=== PATIENT | male | born 1980 | race Two or more races ===

== ENCOUNTER 2019-08-28 12:56 | Emergency (ER) | payer MEDICAID, OTHER ==
[~2019-08-28] VITALS: Ht 172.7 cm; Wt 113.4 kg
[2019-08-28 13:20] VITALS: BP 135/103
== END 2019-08-28 15:14 | disposition home or self-care (01) ==
LOC: ER 12:56
DX: S93.602A Unspecified sprain of left foot, initial encounter (principal); S83.92XA Sprain of unspecified site of left knee, initial encounter; Z88.8 Allergy status to other drugs, medicaments and biological substances; V29.9XXA Motorcycle rider (driver) (passenger) injured in unspecified traffic accident, initial encounter; Y93.I9 Activity, other involving external motion; Y92.410 Unspecified street and highway as the place of occurrence of the external cause; Y99.8 Other external cause status
CPT/HCPCS: 73562; 73610; 73630

== ENCOUNTER 2021-02-17 21:52 | Emergency (ER) | payer MEDICAID ==
[~2021-02-17] VITALS: Ht 172.7 cm; Wt 108.9 kg
[2021-02-17 21:55] VITALS: BP 113/77
[2021-02-17 22:42] LABS: Basophils # (auto) 0 10 ^3/uL (0-0.2); Basophils % (auto) 0.5 % (0.0-2.0); Eosinophils # (auto) 0 10 ^3/uL (0-0.8); Eosinophils % (auto) 0.2 % (0.0-7.0); Hematocrit 45.6 % (41.0-53.0); Hemoglobin 15.4 g/dL (13.5-17.5); Lymphocytes # (auto) 1.5 10 ^3/uL (0.4-5.4); Lymphocytes % (auto) 22.4 % (10.0-50.0); Mean Corpuscular Hemoglobin 30.2 pg (28.0-32.0); Mean Corpuscular Hgb Conc. 33.8 g/dL (32.0-36.0); Mean Corpuscular Volume 89.3 fL (80.0-100.0); Monocytes # (auto) 0.7 10 ^3/uL (0-1.3); Monocytes % (auto) 10.1 % (0.0-12.0); Neutrophils # (auto) 4.6 10 ^3/uL (1.6-8.6); Neutrophils % (auto) 66.8 % (37.0-80.0); Nucleated Red Blood Cells % 0.1 %; Red Cell Distribution Width 13.2 % (11.8-14.3); White Blood Cell 6.9 10^3/uL (4.4-10.8)
[2021-02-17 23:02] LABS: Albumin 3.6 g/dL (3.4-5.0); Calcium 8.9 mg/dL (8.5-10.1); Potassium 3.8 mmol/L (3.5-5.1)
[2021-02-17 23:07] LABS: BUN/Creatinine Ratio 12.7; Bilirubin, Total 0.5 mg/dL (0.2-1.0); Total Protein 8.5 g/dL (6.4-8.2)
== END 2021-02-18 02:11 | disposition left against medical advice (07) ==
LOC: ER 21:52
DX: R19.7 Diarrhea, unspecified (principal); Z20.822 Contact with and (suspected) exposure to COVID-19; Z53.21 Procedure and treatment not carried out due to patient leaving prior to being seen by health care provider
CPT/HCPCS: 36415; 80053; 85025; 87426

== ENCOUNTER 2021-10-13 00:25 | Emergency (ER) | payer MEDICAID ==
[2021-10-13] MEDS ORDERED: KETOROLAC TROMETH 60MG/2ML VIAL IM ONE (03:30)
[2021-10-13] MEDS ORDERED: IBUP800T27 PO (03:47)
[2021-10-13 04:27] VITALS: BP 184/104
== END 2021-10-13 05:36 | disposition home or self-care (01) ==
LOC: ER 00:25
DX: K02.9 Dental caries, unspecified (principal); E11.9 Type 2 diabetes mellitus without complications; Z79.1 Long term (current) use of non-steroidal anti-inflammatories (NSAID); Z88.8 Allergy status to other drugs, medicaments and biological substances
CPT/HCPCS: 96372; 99283; J1885

== ENCOUNTER 2024-07-22 04:42 | Emergency (ER) | payer OTHER, MEDICAID ==
[~2024-07-22] VITALS: Ht 172.7 cm; Wt 111.6 kg
[~2024-07-22 04:42] MED LIST: IBUP-1456 PO
--- NOTE | 2024-07-22 05:16 | ED.PDOC ---
History of Present Illness HPI Comments 44-year-old male complains of right flank pain for the last 1 week. Patient states that he has been having a hard time sleeping in the pain was with little worse tonight so he came in to be checked out. Chief Complaint: Flank Pain Time Seen by MD: 05:03 Primary Care Provider: Dr. Jones Allergies: Coded Allergies: NSAIDs (Verified Allergy, Unknown, 02/17/21) Home Meds Active Scripts Ibuprofen (Ibuprofen) 800 Mg Tab, 1 TAB PO Q6HPRN PRN, #30 TAB 0 Refills Prov:LORETTA KINGRA Karina MOBLEY 10/13/21 Information Source: Patient Mode of Arrival: Ambulatory Severity: Moderate Timing: Days Duration: Since onset Past Medical History PAST MEDICAL HISTORY: DM Surgical History: Denies all surgeries Family History Family History: Reviewed,noncontributory to illness Social History Smoker: Non-Smoker Alcohol: Denies ETOH Use Drugs: Denies Drug Use Lives In: Home Constitutional: reports: malaise Gastrointestinal: reports: nausea Genitourinary: reports: dysuria, flank pain All Other Systems: Reviewed and Negative Physical Exam General Appearance: Moderate Distress, Obese HEENT: Normal ENT Inspection, Pharynx Normal, TMs Normal Neck: Full Range of Motion, Non-Tender, Normal, Normal Inspection Respiratory: Chest Non-Tender, Lungs Clear, No Accessory Muscle Use, No Respiratory Distress, Normal Breath Sounds Cardiovascular: No Edema, No JVD, No Murmur, No Gallop, Normal Peripheral Pulses, Regular Rate/Rhythm Breast Exam: Deferred Gastrointestinal: No Organomegaly, Non Tender, No Pulsatile Mass, Normal Bowel Sounds, Soft Genitalia: Deferred Pelvic: Deferred Rectal: Deferred Extremities: No calf tenderness, Normal capillary refill, Normal inspection, Normal range of motion, Non-tender, No pedal edema Musculoskeletal : Apperance: Normal Neurologic: Alert, encephalographer II-XII nml as Tested, No Motor Deficits, Normal Affect, Normal Mood, No Sensory Deficits Cerebellar Function: Normal Reflexes: Normal Skin: Dry, Normal Color, Warm Lymphatic: No Adenopathy Was a procedure done? Was a procedure done?: No Differential Dx Considerations may include: Differential diagnosis includes but is not limited to: ureteral colic / stone, Aortic aneurysm or dissection, pyelonephritis, acute renal failure, musculoskeletal etiology, constipation and others X-Ray, Labs, Meds, VS Vital Signs Date Time Temp Pulse Resp B/P (MAP) Pulse Ox O2 Delivery O2 Flow Rate FiO2 07/22/24 07:43 88 17 95 Room Air 07/22/24 07:43 98.7 88 16 148/102 (117) 95 98.7 07/22/24 05:20 88 16 96 Room Air* 0 21 07/22/24 05:20 98.8 16 88 159/99 (119) 96 98.8 07/22/24 04:54 98.8 88 16 159/99 (119) 96 98.8 Lab Test 07/22/24 05:16 07/22/24 04:54 Range/Units White Blood Count 6.0 4.4-10.8 10^3/uL Red Blood Count 4.17 L 4.5-5.90 10^6/uL Hemoglobin 12.7 L 13.5-17.5 g/dL Hematocrit 37.9 L 41.0-53.0 % Mean Corpuscular Volume 90.7 80.0-100.0 fL Mean Corpuscular Hemoglobin 30.5 28.0-32.0 pg Mean Corpuscular Hemoglobin Concent 33.6 32.0-36.0 g/dL Red Cell Distribution Width 13.1 11.8-14.3 % Platelet Count 180 140-450 10^3/uL Mean Platelet Volume 8.5 6.9-10.8 fL Neutrophils (%) (Auto) 46.6 37.0-80.0 % Lymphocytes (%) (Auto) 42.2 10.0-50.0 % Monocytes (%) (Auto) 6.9 0.0-12.0 % Eosinophils (%) (Auto) 3.6 0.0-7.0 % Basophils (%) (Auto) 0.7 0.0-2.0 % Neutrophils # (Auto) 2.8 1.6-8.6 10 ^3/uL Lymphocytes # (Auto) 2.5 0.4-5.4 10 ^3/uL Monocytes # (Auto) 0.4 0-1.3 10 ^3/uL Eosinophils # (Auto) 0.2 0-0.8 10 ^3/uL Basophils # (Auto) 0 0-0.2 10 ^3/uL Nucleated Red Blood Cells 0.3 % Sodium Level 139 136-145 mmol/L Potassium Level 3.0 L 3.5-5.1 mmol/L Chloride Level 110 H 98-107 mmol/L Carbon Dioxide Level 20 20-31 mmol/L Anion Gap 9 5-15 Blood Urea Nitrogen 8 L 9-23 mg/dL Creatinine 0.73 0.700-1.30 mg/dL Glomerular Filtration Rate Calc 116 >90 mL/min BUN/Creatinine Ratio 11.0 10.0-20.0 Serum Glucose 244 H 74-106 mg/dL Calcium Level 7.3 L 8.7-10.4 mg/dL Total Bilirubin 0.5 0.2-1.0 mg/dL Aspartate Amino Transferase (AST) 15 13-40 U/L Alanine Aminotransferase (ALT) 24 7-40 U/L Alkaline Phosphatase 35 L 46-116 U/L Total Protein 5.8 5.7-8.2 g/dL Albumin 3.3 3.2-4.8 g/dL Lipase 34 12-53 U/L Urine Color Light-yellow Yellow Urine Clarity Clear Clear Urine pH 6.5 5.0-9.0 Urine Specific [place] 1.033 1.001-1.035 Urine Protein Negative Negative Urine Ketones Negative Negative Urine Blood Negative Negative /uL Urine Nitrite Negative Negative Urine Bilirubin Negative Negative Urine Urobilinogen Normal Negative mg/dL Urine Leukocyte Esterase Negative Negative /uL Urine RBC None seen 0 - 3 /hpf Urine Microscopic WBC < 1 0-3 /HPF Urine Squamous Epithelial Cells None seen <5 /hpf Urine Bacteria None seen None Seen /hpf Urine Glucose 4+ H Normal mg/dL Current Medications Medications (Trade) Dose Ordered Sig/Ajit Route Start Time Stop Time Status Last Admin Potassium Chloride (Klor-Con Tablet) 20 meq ONCE ONCE PO 07/22/24 06:30 07/22/24 06:31 DC 07/22/24 06:[address] [address] Ph: [phone] DIAGNOSTIC IMAGING Diagnostic Imaging Report : [id number] Signed PATIENT: MARY LYNN ACCT: [id number] UNIT: [id number] : 1980 LOC: ER ROOM / BED: / AGE / SEX: 44 / M ADM STATUS: REG ER SERVICE 2462 ORDERING PHYSICIAN: ZOË FINCH MD PROCEDURE(s): ABPL - CT AB PEL WO CON-NO ORAL OR IV REASON: right flank pain ORDER NUMBER(s): [id number], ACCESSION NUMBER(s): [id number] EXAM: CT Abdomen and Pelvis Without Intravenous Contrast CLINICAL INDICATION: right flank pain TECHNIQUE: Axial computed tomography images of the abdomen and pelvis without intravenous contrast. This CT exam was performed using one or more of the following dose reduction techniques: automated exposure control, adjustment of the mA and/or kV according to patient size, and/or use of iterative reconstruction technique. CONTRAST: COMPARISON: None FINDINGS: LUNG BASES: Unremarkable. No mass. No consolidation. ABDOMEN: LIVER: Hepatomegaly with fatty infiltration. GALLBLADDER AND BILE DUCTS: Unremarkable. No calcified stones. No ductal dilation. PANCREAS: Unremarkable. No ductal dilation. SPLEEN: Unremarkable. No splenomegaly. ADRENALS: Unremarkable. No mass. KIDNEYS AND URETERS: Unremarkable. No stones within either kidney. No hydronephrosis. STOMACH AND BOWEL: Fecal retention in the colon consistent with constipation. No obstruction. No mucosal thickening. PELVIS: APPENDIX: No findings to suggest acute appendicitis. BLADDER: Unremarkable. No stones. REPRODUCTIVE: Unremarkable as visualized. ABDOMEN and PELVIS: INTRAPERITONEAL SPACE: Unremarkable. No free air. No significant fluid collection. BONES/JOINTS: No acute fracture. No dislocation. SOFT TISSUES: Umbilical hernia containing fat. VASCULATURE: Unremarkable. No abdominal aortic aneurysm. LYMPH NODES: Unremarkable. No enlarged lymph nodes. OTHER FINDINGS: . . IMPRESSION: 1. Hepatomegaly with fatty infiltration. 2. Umbilical hernia containing fat. 3. Fecal retention in the colon consistent with constipation. 4. No obstructive uropathy. ATED BY: ANDREA LINDO MD DICTATED DATE/TIME: 07/22/24617 SIGNED BY: ANDREA LINDO MD SIGNED DATE/TIME: 07/22/24617 CC: X-Ray, Labs, Meds, VS Comment Addendum by Dr. Cantrell: This 44-year-old male presents secondary abdominal pain. Workup here has benign except for what appears to be copious amounts of stool throughout the colon. It appears the patient's complaint is constipation. He was asked to eat a heart healthy high-fiber density very well hydrated. He will be prescribed laxatives. He sees PCP in next 1 2 days return to the ER for any new/worse/worsening symptoms. Time of 1ST Reevaluation: 05:15 Reevaluation 1ST: Unchanged Patient Education/Counseling: Diagnosis, Treatment Family Education/Counseling: No Family Present Departure 1 Departure Time of Disposition: 07:21 Impression: Primary Impression: Acute right flank pain Additional Impressions: Constipation Abdominal pain Disposition: 01 HOME / SELF CARE / HOMELESS Condition: Stable Discharged With: Self Critical Care Note Critical Care Time?: No Stability Stability form required: No Heart Score Heart Score: Heart Score Response (Comments) Value History N/A 0 EKG N/A 0 Age N/A 0 Risk Factors N/A 0 Troponin N/A 0 Total 0 I personally scribed for ZOË FINCH MD ([email or web address]) on 07/22/24 at 06:33. Electronically submitted by Ksenia Moran ([email or web address]). I personally scribed for ZOË FINCH MD (MACO) on 07/22/24 at 06:35. Electronically submitted by Ksenia Moran ([email or web address]). I personally scribed for ZOË FINCH MD (MACO) on 07/22/24 at 06:38. Electronically submitted by Ksenia Moran ([email or web address]). I personally scribed for ZOË FINCH MD (MACO) on 07/22/24 at 06:40. Electronically submitted by Ksenia Moran ([email or web address]). I personally scribed for ZOË FINCH MD (MACO) on 07/22/24 at 06:42. Electronically submitted by Ksenia Moran ([email or web address]). ZOË FINCH MD Jul 22, 2024 05:16 NOLA CANTRELL MD Jul 22, 2024 07:22
[2024-07-22 05:20] VITALS: PULSE 88; RESP 16; O2SAT 96
[2024-07-22 05:29] LABS: Basophils # (auto) 0 10 ^3/uL (0-0.2); Basophils % (auto) 0.7 % (0.0-2.0); Eosinophils # (auto) 0.2 10 ^3/uL (0-0.8); Eosinophils % (auto) 3.6 % (0.0-7.0); Hematocrit 37.9 % (41.0-53.0); Hemoglobin 12.7 g/dL (13.5-17.5); Lymphocytes # (auto) 2.5 10 ^3/uL (0.4-5.4); Lymphocytes % (auto) 42.2 % (10.0-50.0); Mean Corpuscular Hemoglobin 30.5 pg (28.0-32.0); Mean Corpuscular Hgb Conc. 33.6 g/dL (32.0-36.0); Mean Corpuscular Volume 90.7 fL (80.0-100.0); Monocytes # (auto) 0.4 10 ^3/uL (0-1.3); Monocytes % (auto) 6.9 % (0.0-12.0); Neutrophils # (auto) 2.8 10 ^3/uL (1.6-8.6); Neutrophils % (auto) 46.6 % (37.0-80.0); Nucleated Red Blood Cells % 0.3 %; Platelet Count (auto) 180 10^3/uL (140-450); Red Blood Cells 4.17 10^6/uL (4.5-5.90); Red Cell Distribution Width 13.1 % (11.8-14.3)
[2024-07-22 05:35] LABS: Urine Bacteria None Seen /hpf (None Seen)
[2024-07-22 05:50] LABS: Alanine Aminotransferase 24 U/L (7-40); Albumin 3.3 g/dL (3.2-4.8); Anion Gap 9 (5-15); Aspartate Aminotransferase 15 U/L (13-40); Lipase 34 U/L (12-53); Sodium 139 mmol/L (136-145); Total Protein 5.8 g/dL (5.7-8.2)
[2024-07-22 05:51] LABS: Bilirubin, Total 0.5 mg/dL (0.2-1.0)
[2024-07-22 05:57] LABS: Alkaline Phosphatase 35 U/L (46-116); Blood Urea Nitrogen 8 mg/dL (9-23); Calcium 7.3 mg/dL (8.7-10.4); Carbon Dioxide 20 mmol/L (20-31); Chloride 110 mmol/L (98-107); Glucose 244 mg/dL (74-106)
--- NOTE | 2024-07-22 06:21 | DVH ---
EXAM: CT Abdomen and Pelvis Without Intravenous Contrast CLINICAL INDICATION: right flank pain TECHNIQUE: Axial computed tomography images of the abdomen and pelvis without intravenous contrast. This CT exam was performed using one or more of the following dose reduction techniques: automated exposure control, adjustment of the mA and/or kV according to patient size, and/or use of iterative r econstruction technique. CONTRAST: COMPARISON: None FINDINGS: LUNG BASES: Unremarkable. No mass. No consolidation. ABDOMEN: LIVER: Hepatomegaly with fatty infiltration. GALLBLADDER AND BILE DUCTS: Unremarkable. No calcified stones. No ductal dilation. PANCREAS: Unremarkable. No ductal dilation. SPLEEN: Unremarkable. No splenomegaly. ADRENALS: Unremarkable. No mass. KIDNEYS AND URETERS: Unremarkable. No stones within either kidney. No hydronephrosis. STOMACH AND BOWEL: Fecal retention in the colon consistent with constipation. No obstruction. No mucosal thickening. PELVIS: APPENDIX: No findings to suggest acute appendicitis. BLADDER: Unremarkable. No stones. REPRODUCTIVE: Unremarkable as visualized. ABDOMEN and PELVIS: INTRAPERITONEAL SPACE: Unremarkable. No free air. No significant fluid collection. BONES/JOINTS: No acute fracture. No dislocation. SOFT TISSUES: Umbilical hernia containing fat. VASCULATURE: Unremarkable. No abdominal aortic aneurysm. LYMPH NODES: Unremarkable. No enlarged lymph nodes. OTHER FINDINGS: . . IMPRESSION: 1. Hepatomegaly with fatty infiltration. 2. Umbilical hernia containing fat. 3. Fecal retention in the colon consistent with constipation. 4. No obstructive uropathy.
[2024-07-22] MEDS: POTASSIUM CHL 20 Meq TABLET PO ONE (06:33)
[2024-07-22 06:36] LABS: Urine Blood Negative /uL (Negative); Urine Clarity Clear (Clear); Urine Color Light-Yellow (Yellow); Urine Protein, UAD Negative (Negative); Urine Specific Gravity 1.033 (1.001-1.035); Urine Squamous Epithelial Cell None Seen /hpf (<5); Urine Urobilinogen Normal (Negative); Urine WBC < 1 /HPF (0-3); Urine pH 6.5 (5.0-9.0)
[2024-07-22 07:43] VITALS: BP 148/102; PULSE 88; RESP 17; TEMP 98.7; O2SAT 95
== END 2024-07-22 07:46 | disposition home or self-care (01) ==
LOC: ER 04:42
DX: K59.00 Constipation, unspecified (principal); E11.9 Type 2 diabetes mellitus without complications; Z79.899 Other long term (current) drug therapy
CPT/HCPCS: 36415; 74176; 80053; 81001; 83690; 85025

== ENCOUNTER 2024-07-26 00:58 | Inpatient (IN) | payer OTHER, MEDICAID ==
[~2024-07-26] VITALS: Ht 172.7 cm; Wt 111.7 kg
[2024-07-26] MEDS ORDERED: ADENOSINE 6 MG/2 ML INJ IV ONE (01:15)
[2024-07-26 01:17] VITALS: PULSE 97; RESP 17; O2SAT 95
--- NOTE | 2024-07-26 01:22 | ED.PDOC ---
HPI Comments 44 y/o obese M, with a history of DM and ED, presents with c/o palpitations. Patient reports onset an hour prior to ED arrival after taking a Viagra pill and having sex with his . Denies any chest pain, shortness of breath, nausea, vomiting, or other associated symptoms at this time. Chief Complaint: Palpitations Time Seen by MD: 01:00 Primary Care Provider: Dr. Jones Reviewed Notes: Nurses Notes, Medications, Allergies Allergies: Coded Allergies: NSAIDs (Verified Allergy, Unknown, 02/17/21) Home Meds Active Scripts Ibuprofen (Ibuprofen) 800 Mg Tab, 1 TAB PO Q6HPRN PRN, #30 TAB 0 Refills Prov:STAN KING 10/13/21 Information Source: Patient Mode of Arrival: Ambulatory Severity: Moderate Timing: Hours Duration: Since onset Prehospital treatment: None Past Medical History PAST MEDICAL HISTORY: DM Past Medical History (Other): ED Surgical History: Denies all surgeries Family History Family History: Reviewed,noncontributory to illness Social History Smoker: Non-Smoker Alcohol: Denies ETOH Use Drugs: Denies Drug Use Lives In: Home All Other Systems: Reviewed and Negative (as per HPI) Physical Exam General Appearance: No Apparent Distress, Obese HEENT: Normal ENT Inspection, Pharynx Normal, TMs Normal Neck: Full Range of Motion, Non-Tender, Normal, Normal Inspection Respiratory: Chest Non-Tender, Lungs Clear, No Accessory Muscle Use, No Respiratory Distress, Normal Breath Sounds Cardiovascular: No Edema, No JVD, No Murmur, No Gallop, Normal Peripheral Pulses, Tachycardia, Other (rhythm normal ) Breast Exam: Deferred Gastrointestinal: No Organomegaly, Non Tender, No Pulsatile Mass, Normal Bowel Sounds, Soft Genitalia: Deferred Pelvic: Deferred Rectal: Deferred Extremities: No calf tenderness, Normal capillary refill, Normal inspection, Normal range of motion, Non-tender, No pedal edema Musculoskeletal : Apperance: Normal Neurologic: Alert, practice director II-XII nml as Tested, No Motor Deficits, Normal Affect, Normal Mood, No Sensory Deficits Cerebellar Function: Normal Reflexes: Normal Skin: Dry, Normal Color, Warm Lymphatic: No Adenopathy EKG EKG : Pulse Rate (adult): 181 [place]: Normal Block: None Hypertrophy: None ST: Normal Was a procedure done? Was a procedure done?: No CP Differential Dx Differential Diagnosis: A-fib, Anxiety / Panic Attack, Electrolyte Disorder, CT, PSVT, Sinus Tachycardia, V-Tach Differential Diagnosis: N/A X-Ray, Labs, Meds, VS Vital Signs Date Time Temp Pulse Resp B/P (MAP) Pulse Ox O2 Delivery O2 Flow Rate FiO2 07/26/24 02:58 143 138/55 07/26/24 02:39 159 07/26/24 01:48 89 07/26/24 01:22 181 07/26/24 01:12 100.6 181 20 144/90 (108) 96 100.6 07/26/24 01:04 181 Lab Test 07/26/24 01:58 07/26/24 01:52 07/26/24 01:09 Range/Units Troponin I High Sensitivity 47 22 </=54 ng/L Urine Opiates Screen Pending Urine Fentanyl Screen Pending Urine Barbiturates Screen Pending Urine Phencyclidine Screen Pending Urine Amphetamines Screen Pending Urine Benzodiazepines Screen Pending Urine Cocaine Screen Pending Urine Cannabinoids Screen Pending White Blood Count 9.9 # 4.4-10.8 10^3/uL Red Blood Count 5.94 H 4.5-5.90 10^6/uL Hemoglobin 18.6 #H 13.5-17.5 g/dL Hematocrit 53.5 #H 41.0-53.0 % Mean Corpuscular Volume 90.1 80.0-100.0 fL Mean Corpuscular Hemoglobin 31.3 28.0-32.0 pg Mean Corpuscular Hemoglobin Concent 34.8 32.0-36.0 g/dL Red Cell Distribution Width 13.3 11.8-14.3 % Platelet Count 267 140-450 10^3/uL Mean Platelet Volume 8.8 6.9-10.8 fL Neutrophils (%) (Auto) 52.1 37.0-80.0 % Lymphocytes (%) (Auto) 36.4 10.0-50.0 % Monocytes (%) (Auto) 8.5 0.0-12.0 % Eosinophils (%) (Auto) 2.1 0.0-7.0 % Basophils (%) (Auto) 0.9 0.0-2.0 % Neutrophils # (Auto) 5.1 1.6-8.6 10 ^3/uL Lymphocytes # (Auto) 3.6 0.4-5.4 10 ^3/uL Monocytes # (Auto) 0.8 0-1.3 10 ^3/uL Eosinophils # (Auto) 0.2 0-0.8 10 ^3/uL Basophils # (Auto) 0.1 0-0.2 10 ^3/uL Nucleated Red Blood Cells 0.2 % Sodium Level 134 #L 136-145 mmol/L Potassium Level 4.0 3.5-5.1 mmol/L Chloride Level 100 # 98-107 mmol/L Carbon Dioxide Level 23 20-31 mmol/L Anion Gap 11 5-15 Blood Urea Nitrogen 9 9-23 mg/dL Creatinine 1.25 0.700-1.30 mg/dL Glomerular Filtration Rate Calc 74 >90 mL/min BUN/Creatinine Ratio 7.2 L 10.0-20.0 Serum Glucose 271 H 74-106 mg/dL Calcium Level 9.8 8.7-10.4 mg/dL Total Bilirubin 1.0 0.2-1.0 mg/dL Aspartate Amino Transferase (AST) 31 13-40 U/L Alanine Aminotransferase (ALT) 37 7-40 U/L Alkaline Phosphatase 50 46-116 U/L Total Protein 8.2 5.7-8.2 g/dL Albumin 4.7 3.2-4.8 g/dL Thyroid Stimulating Hormone (TSH) 4.87 H 0.55-4.78 uIU/mL Plasma/Serum Blood Alcohol 3.3 <10 mg/dL Current Medications Medications (Trade) Dose Ordered Sig/Ajit Route Start Time Stop Time Status Last Admin Diltiazem HCl (Cardizem Injection) 20 mg ONCE ONCE IV 07/26/24 01:45 07/26/24 01:46 DC 07/26/24 01:39 Digoxin (Lanoxin Injection) 500 mcg ONCE ONCE IV 07/26/24 02:15 07/26/24 02:16 DC 07/26/24 02:39 Metoprolol Tartrate (Lopressor) 5 mg ONCE ONCE IV 07/26/24 03:00 07/26/24 03:01 DC 07/26/24 02:58 Time of 1ST Reevaluation: 01:30 Reevaluation 1ST: Unchanged Patient Education/Counseling: Diagnosis, Treatment Family Education/Counseling: No Family Present Departure 1 Departure Time of Disposition: 03:18 Impression: Primary Impression: Atrial fibrillation with rapid ventricular response Disposition: 09 ADMITTED INPATIENT Admit to: Tele Condition: Guarded Comments Rapid Heart Rate After Viagra Use Chief Complaint: Heart racing after taking Viagra History of Present Illness: 44-year-old male with a history of type 2 diabetes, obesity, and erectile dysfunction who presents with rapid heart rate. Patient took Viagra and had intimate relations with his , after which he began experiencing tachycardia approximately one hour prior to ED arrival. Initial heart rate was noted to be around 170, initially appearing regular but subsequently identified as atrial fibrillation on further monitoring. Review of Systems: Limited by acute presentation Cardiovascular: Palpitations, rapid heart rate Otherwise negative for chest pain, shortness of breath, dizziness, or syncope Medications: Viagra (sildenafil) - as needed Other home medications not documented Past Medical History: Type 2 Diabetes Mellitus Obesity Erectile Dysfunction Past Surgical History: None documented Social History: Vital Signs: Heart Rate: 170 beats per minute, initially Physical Exam: Cardiovascular: Tachycardic, irregular rhythm consistent with atrial fibrillation Other exam findings not documented Lab Results: Sodium: 134 mEq/L (borderline low) Troponin: Initial 22, repeat 47 (normal) TSH: 4.9 (elevated) Imaging and Other Relevant Results: ECG: Consistent with atrial fibrillation with rapid ventricular response Medical Decision Making: Summary Statement: 44-year-old male who developed new-onset atrial fibrillation with RVR after Viagra use, requiring multiple medications for rate control. Problem List: 1. New onset atrial fibrillation with RVR 2. Borderline hyponatremia 3. Elevated TSH 4. Type 2 diabetes 5. Obesity Differential Diagnosis: 1. Medication-induced atrial fibrillation 2. Underlying cardiac condition 3. Thyroid dysfunction 4. Metabolic derangement ED Course: Patient received sequential treatment with diltiazem, which provided temporary improvement, followed by digoxin and metoprolol for persistent rate control. Rate improved with combination therapy. Assessment and Plan: 1. New onset atrial fibrillation with rapid ventricular response: - Admit to telemetry unit for continued rate control and cardiac monitoring - Continue rate control medications as prescribed - Plan for further cardiac workup during admission 2. Elevated TSH: - Will need outpatient endocrine follow-up - May contribute to current presentation 3. Type 2 Diabetes/Obesity: - Continue home medications - Follow up with primary care physician Billing Information: ICD-10: I48.91 - Unspecified atrial fibrillation ICD-10: R00.0 - Tachycardia, unspecified ICD-10: E11.9 - Type 2 diabetes mellitus without complications ICD-10: E66.9 - Obesity, unspecified Critical Care Note Critical Care Time?: Yes (35 min-critical care time only) Critical care comment: Total critical care time: Approximately 36 minutes Due to a high probability of clinically significant, life threatening deterioration, the patient required my highest level of preparedness to intervene emergently and I personally spent this critical care time directly and personally managing the patient. This critical care time included obtaining a history; examining the patient; pulse oximetry; ordering and review of studies; arranging urgent treatment with development of a management plan; evaluation of patient's response to treatment; frequent reassessment; and, discussions with other providers. This critical care time was performed to assess and manage the high probability of imminent, life-threatening deterioration that could result in multi-organ failure. It was exclusive of separately billable procedures and treating other patients. Stability Stability form required: No Heart Score Heart Score: Heart Score Response (Comments) Value History Moderate Suspicious 1 EKG Repolarization Disturb 1 Age <45 0 Risk Factors 1 or 2 risk factors 1 Troponin Normal limit 0 Total 3 I personally scribed for ZOË FINCH MD ([email or web address]) on 07/26/24 at 01:22. Electronically submitted by Gildardo Tobar ([email or web address]). ZOË FINCH MD Jul 26, 2024 01:22
[2024-07-26] MEDS: dilTIAZem 25 MG/5 ML VIAL IV ONE (01:39)
--- NOTE | 2024-07-26 01:49 | ECG ---
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
[2024-07-26 01:56] LABS: Basophils # (auto) 0.1 10 ^3/uL (0-0.2); Eosinophils # (auto) 0.2 10 ^3/uL (0-0.8); Eosinophils % (auto) 2.1 % (0.0-7.0); Nucleated Red Blood Cells % 0.2 %; White Blood Cell 9.9 10^3/uL (4.4-10.8)
[2024-07-26 01:57] LABS: Alkaline Phosphatase 50 U/L (46-116)
[2024-07-26 01:58] LABS: Alanine Aminotransferase 37 U/L (7-40); Albumin 4.7 g/dL (3.2-4.8); Anion Gap 11 (5-15); Aspartate Aminotransferase 31 U/L (13-40); BUN/Creatinine Ratio 7.2 (10.0-20.0); Basophils % (auto) 0.9 % (0.0-2.0); Blood Alcohol 3.3 mg/dL (<10); Calcium 9.8 mg/dL (8.7-10.4); Carbon Dioxide 23 mmol/L (20-31); Chloride 100 mmol/L (98-107); Hematocrit 53.5 % (41.0-53.0); Hemoglobin 18.6 g/dL (13.5-17.5); Lymphocytes # (auto) 3.6 10 ^3/uL (0.4-5.4); Lymphocytes % (auto) 36.4 % (10.0-50.0); Mean Corpuscular Hemoglobin 31.3 pg (28.0-32.0); Mean Corpuscular Hgb Conc. 34.8 g/dL (32.0-36.0); Mean Corpuscular Volume 90.1 fL (80.0-100.0); Monocytes # (auto) 0.8 10 ^3/uL (0-1.3); Monocytes % (auto) 8.5 % (0.0-12.0); Neutrophils # (auto) 5.1 10 ^3/uL (1.6-8.6); Neutrophils % (auto) 52.1 % (37.0-80.0); Platelet Count (auto) 267 10^3/uL (140-450); Red Blood Cells 5.94 10^6/uL (4.5-5.90); Red Cell Distribution Width 13.3 % (11.8-14.3)
[2024-07-26 02:08] LABS: Blood Urea Nitrogen 9 mg/dL (9-23); Glucose 271 mg/dL (74-106); Sodium 134 mmol/L (136-145); Total Protein 8.2 g/dL (5.7-8.2)
[2024-07-26] MEDS ORDERED: METOPROLOL TARTRATE 1MG/1ML-5ML VIAL IV PRN (02:15)
[2024-07-26] MEDS: DIGOXIN (250MCG/ML) 2 ML AMPULE IV ONE (02:39)
[2024-07-26] MEDS: METOPROLOL TARTRATE 1MG/1ML-5ML VIAL IV ONE (02:58)
[2024-07-26] MEDS: METOPROLOL TARTRATE 1MG/1ML-5ML VIAL IV PRN (03:33)
[2024-07-26 03:43] LABS: Amphetamine Screen, Urine Neg (NEGATIVE); Barbiturate Scree,Urine Neg (NEGATIVE); Benzodiazephine Screen, Urine Neg (NEGATIVE); Cannabinoid Screen, Urine Neg (NEGATIVE); Cocaine Screen, Urine Neg (NEGATIVE); Opiate Scree,Urine Neg (NEGATIVE); Phencyclidine Screen, Urine Neg (NEGATIVE)
[2024-07-26] MEDS ORDERED: DEXTROSE (50%) 50ML SYRG IV PRN (04:00)
[2024-07-26] MEDS ORDERED: ONDANSETRON HCL 4 MG/2 ML VIAL IV PRN (04:00)
[2024-07-26] MEDS ORDERED: MORPHINE SULFATE INJ 2 MG/ml SYRG IV PRN (04:00)
[2024-07-26] MEDS ORDERED: NITROGLYCERIN 0.4 MG SL TAB SL PRN (04:00)
[2024-07-26 04:10] LABS: Triglycerides 114 mg/dL (< 150)
[2024-07-26 04:12] LABS: Cholesterol 178 mg/dL (< 200); HDL Cholesterol 57 mg/dL (40-59)
[2024-07-26 04:19] LABS: LDL Cholesterol 111 mg/dL (< 100)
[2024-07-26] MEDS ORDERED: AMIODARONE BOLUS KIT 100 ML IV ONE (04:30)
[2024-07-26] MEDS: AMIODARONE BOLUS KIT 100 ML IV ONE (04:33)
--- NOTE | 2024-07-26 04:37 | DVH ---
CHEST RADIOGRAPH Indication: SOB Technique: Single frontal view of the chest was obtained Comparison: None FINDINGS: Lines and Tubes: None Lungs: No focal consolidation. Pleura: No effusion. No pneumothorax. Cardiomediastinal contours: Unremarkable Bones: No acute osseous abnormality. Old right clavicular fracture. IMPRESSION: 1. No acute cardiopulmonary disease.
[2024-07-26] MEDS ORDERED: AMIODARONE 360mg/200mL PREMIX 200 ML IV ONE (04:45)
[2024-07-26] MEDS: AMIODARONE 360mg/200mL PREMIX 200 ML IV ONE (04:46)
--- NOTE | 2024-07-26 04:49 | DVHHP2 ---
History of Present Illness Reason for Visit: Palpitations History of Present Illness 44-year-old male presents for evaluation of palpitations. Patient reports taking Viagra last night and subsequently developing palpitations. Denies chest pain shortness for breath or dizziness. On arrival patient was noted to be in AFib with RVR with a rate 140s to 160s. Past Medical History Dyslipidemia, diabetes mellitus Past Surgical History Denies Family History Noncontributory Smoke: No ALCOHOL: none Drugs: None Lives: with Family Review of Systems Review of Systems Review of systems are currently negative otherwise addressed in HPI. Allergies: Coded Allergies: NSAIDs (Verified Allergy, Unknown, 02/17/21) Medications Current Medications Medications Dose Ordered Sig/Ajit Route Start Time Stop Time Status Last Admin Dose Admin Metoprolol Tartrate 5 mg Q5M PRN IV 07/26/24 03:30 07/26/24 03:33 5 MG Diagnostic Test (Pha) 1 strip ACHS 07/26/24 07:00 Insulin Human Regular ACHS SC 07/26/24 07:00 Dextrose 50 ml UD PRN IV 07/26/24 04:00 Ondansetron HCl 4 mg Q4HP PRN IV 07/26/24 04:00 Nitroglycerin 0.4 mg Q5MINP PRN SL 07/26/24 04:00 Morphine Sulfate 2 mg Q30M PRN IV 07/26/24 04:00 Exam Vital Signs Vital Signs Date Time Temp Pulse Resp B/P (MAP) Pulse Ox O2 Delivery O2 Flow Rate FiO2 07/26/24 04:02 110 07/26/24 03:33 146/83 07/26/24 01:12 100.6 20 96 100.6 Exam Gen: 44-year-old male in no apparent distress, obese Skin: Warm, dry, normal color and texture, no rash. HEENT: Normocephalic atraumatic, mucous membranes moist and pink. Neck: Cervical and supraclavicular nodes normal without enlargement, trachea is midline, thyroid gland is normal without masses. Pulmonary: Clear to auscultation and percussion bilaterally. Cardiac: Irregular rhythm Abdomen: Soft, nontender, nondistended, bowel sounds present all 4 quadrants, no guarding, no rigidity, no organomegaly. Extremities: No cyanosis, clubbing, no edema Neuro: Cranial nerves II through XII grossly intact, normal affect and speech, no focal motor deficits. Labs/Xrays ORDERING PHYSICIAN: ZOË FINCH MD PROCEDURE(s): CXRP - CHEST PORTABLE REASON: SOB ORDER NUMBER(s): [id number], ACCESSION NUMBER(s): [id number] CHEST RADIOGRAPH Indication: SOB Technique: Single frontal view of the chest was obtained Comparison: None FINDINGS: Lines and Tubes: None Lungs: No focal consolidation. Pleura: No effusion. No pneumothorax. Cardiomediastinal contours: Unremarkable Bones: No acute osseous abnormality. Old right clavicular fracture. IMPRESSION: 1. No acute cardiopulmonary disease. Labs Test 07/26/24 03:56 07/26/24 01:58 07/26/24 01:52 07/26/24 01:09 Range/Units Troponin I High Sensitivity 47 </=54 ng/L Urine Opiates Screen Neg NEGATIVE Urine Fentanyl Screen Neg NEGATIVE Urine Barbiturates Screen Neg NEGATIVE Urine Phencyclidine Screen Neg NEGATIVE Urine Amphetamines Screen Neg NEGATIVE Urine Benzodiazepines Screen Neg NEGATIVE Urine Cocaine Screen Neg NEGATIVE Urine Cannabinoids Screen Neg NEGATIVE White Blood Count 9.9 # 4.4-10.8 10^3/uL Red Blood Count 5.94 H 4.5-5.90 10^6/uL Hemoglobin 18.6 #H 13.5-17.5 g/dL Hematocrit 53.5 #H 41.0-53.0 % Mean Corpuscular Volume 90.1 80.0-100.0 fL Mean Corpuscular Hemoglobin 31.3 28.0-32.0 pg Mean Corpuscular Hemoglobin Concent 34.8 32.0-36.0 g/dL Red Cell Distribution Width 13.3 11.8-14.3 % Platelet Count 267 140-450 10^3/uL Mean Platelet Volume 8.8 6.9-10.8 fL Neutrophils (%) (Auto) 52.1 37.0-80.0 % Lymphocytes (%) (Auto) 36.4 10.0-50.0 % Monocytes (%) (Auto) 8.5 0.0-12.0 % Eosinophils (%) (Auto) 2.1 0.0-7.0 % Basophils (%) (Auto) 0.9 0.0-2.0 % Neutrophils # (Auto) 5.1 1.6-8.6 10 ^3/uL Lymphocytes # (Auto) 3.6 0.4-5.4 10 ^3/uL Monocytes # (Auto) 0.8 0-1.3 10 ^3/uL Eosinophils # (Auto) 0.2 0-0.8 10 ^3/uL Basophils # (Auto) 0.1 0-0.2 10 ^3/uL Nucleated Red Blood Cells 0.2 % Sodium Level 134 #L 136-145 mmol/L Potassium Level 4.0 3.5-5.1 mmol/L Chloride Level 100 # 98-107 mmol/L Carbon Dioxide Level 23 20-31 mmol/L Anion Gap 11 5-15 Blood Urea Nitrogen 9 9-23 mg/dL Creatinine 1.25 0.700-1.30 mg/dL Glomerular Filtration Rate Calc 74 >90 mL/min BUN/Creatinine Ratio 7.2 L 10.0-20.0 Serum Glucose 271 H 74-106 mg/dL Calcium Level 9.8 8.7-10.4 mg/dL Total Bilirubin 1.0 0.2-1.0 mg/dL Aspartate Amino Transferase (AST) 31 13-40 U/L Alanine Aminotransferase (ALT) 37 7-40 U/L Alkaline Phosphatase 50 46-116 U/L Total Protein 8.2 5.7-8.2 g/dL Albumin 4.7 3.2-4.8 g/dL Triglycerides Level 114 < 150 mg/dL Cholesterol Level 178 < 200 mg/dL LDL Cholesterol 111 H < 100 mg/dL HDL Cholesterol 57 40-59 mg/dL Thyroid Stimulating Hormone (TSH) 4.87 H 0.55-4.78 uIU/mL Plasma/Serum Blood Alcohol 3.3 <10 mg/dL Assessment/Plan Assessment/Plan Assessment AFib with RVR Palpitations Hypothyroid Plan Admit the patient to telemetry to the hospitalist Echocardiogram pending Cardiology consultation Continue amiodarone drip Thyroid panel pending Continue treatment per orders. Plan discussed with: Patient My Orders Orders - NETTE RUIZ AGACNP Procedure Category Date Status Time Echo 2d Mode Cardiac US 07/26/24 Logged DOP 03:46 Thyroid Panel LAB 07/26/24 In Process 03:46 Basic Metabolic Panel LAB 07/27/24 Verified 04:00 Glucose Blood PHA 07/26/24 In Process (Accu-Chek Comfort 07:00 Insulin R (Human) PHA 07/26/24 In Process (Insulin R) 07:00 Dextrose 50% Syringe PHA 07/26/24 In Process 04:00 Admit ADMIT 07/26/24 Transmitted 03:46 Ondansetron Hcl PHA 07/26/24 In Process (Zofran) 04:00 Cardiac DIET 07/26/24 Transmitted Diet-2gna,Lofat,Lochol Breakfast Condition: Fair LUIS 07/26/24 In Process 03:46 Bedrest With Bathroom [facility] 07/26/24 In Process Privileg 03:46 Nitroglycerin [facility] 07/26/24 In Process Sublingual (Ntrostat 04:00 Morphine Sulfate PHA 07/26/24 In Process Injection 04:00 Stat Ekg For Chest [facility] 07/26/24 In Process Pain 03:46 Notify Md Of Changes [facility] 07/26/24 In Process From Base 03:46 Automotive Parts Clerk For [facility] 07/26/24 In Process 24 Hours 03:46 Emergency Dysrhythmia [facility] 07/26/24 In Process Protocol 03:46 Rhythm Strips Once [facility] 07/26/24 In Process Every Shift 03:46 Oxygen By Nasal RT 07/26/24 Transmitted Cannula 03:46 Date of Service: Jul 26, 2024 Billing Provider: NETTE RUIZ Common Visit Codes: [id number] INP/OBS CARE (HIGH) NETTE RUIZ Jul 26, 2024 04:49
[2024-07-26] MEDS: ACCU-CHEK COMFORT CURVE STRIP VI SCH (07:25)
[2024-07-26] MEDS: InsuLIN REG 1unit/0.01ml Soln (100units/ml) SC SCH (07:56)
[2024-07-26 08:30] VITALS: PULSE 97; RESP 12; O2SAT 94
[2024-07-26 10:22] VITALS: BP 143/89; PULSE 94; RESP 18; TEMP 98.7; O2SAT 96
[2024-07-26] MEDS ORDERED: ENOXAPARIN SOD 100 MG/1 ML SYRINGE SC ONE (10:30)
[2024-07-26] MEDS ORDERED: AMIODARONE 360mg/200mL PREMIX 200 ML IV SCH (10:45)
[2024-07-26] MEDS: AMIODARONE 360mg/200mL PREMIX 200 ML IV SCH (11:03)
--- NOTE | 2024-07-26 11:13 | DVHINCON2 ---
[facility] 07/26/24 1113: Date Seen: Jul 26, 2024 Referring Physician MD Adrián Reason for Consultation A-fib with RVR History of Present Illness This is a pleasant 44-year-old man who presented to the emergency room with a chief complaint of palpitations on 07/25/24. Per patient, he attended a rodeo event where he had a large beer, C4 energy drinks x 2, and poor H2O intake. Later on during the day he took Viagra x 1 and had sexual intercourse with his . Post-coitus he developed some nausea and cardiac palpitations with his iwatch showing a heart rate up to the 150s bpm which prompted him to attend the nearest emergency room for further evaluation. Upon arrival to the emergency room he underwent multiple 12 lead electrocardiogram revealing an atrial fibrillation rhythm up to the 180s bpm with associated diffuse T-wave changes. monitoring specialist reveals sustained atrial fibrillation with intermittent RVR. Denies chest pain, SOB, diaphoresis, dizziness, or syncopal events. He is currently on an amiodarone drip per pharmacy protocol. Significant medical history includes [id number]-cqebjtdww diabetes mellitus, occasional alcohol use, and obesity. Of note, the patient reports C4 energy drink intake on daily basis including 1-4 cans/day for the past 4 mos. Past Medical History Past medical history reviewed. No other significant than mentioned above. Past Surgical History Denies any past surgical history. Family History Family history reviewed. Maternal, not significant. Paternal, unknown. Social History Denies the use of illicit drugs or tobacco use. Admits to occasional alcohol use. Allergies: Coded Allergies: NSAIDs (Verified Allergy, Unknown, 02/17/21) Home Meds Active Scripts Pravastatin Sodium (PRAVACHOL TABLET) 20 Mg Tb, 1 TAB PO QPM for 30 Days, #30 TAB 1 Refill Prov:JULIANO HURTADO RESIDENT 07/27/24 Diltiazem Hcl (Cardizem) 120 Mg Tab, 120 MG PO DAILY for 30 Days, #30 TAB Prov:JULIANO HURTADO RESIDENT 07/27/24 Apixaban Base (ELIQUIS) 5 Mg Tab, 5 MG PO BID for 30 Days, #60 TAB Prov:JULIANO HURTADO RESIDENT 07/27/24 Ibuprofen (Ibuprofen) 800 Mg Tab, 1 TAB PO Q6HPRN PRN, #30 TAB 0 Refills Prov:FERNANDOSTAN MOBLEY 10/13/21 Home Meds Home medications reviewed. Current Medications Current Medications Medications (Trade) Dose Ordered Sig/Ajit Route PRN Reason Start Time Stop Time Status Last Admin Metoprolol Tartrate (Lopressor) 5 mg Q5M PRN IV afib 07/26/24 02:15 07/26/24 02:27 DC Metoprolol Tartrate (Lopressor) 5 mg Q5M PRN IV HEART RATE GREATER THAN 100 07/26/24 03:30 07/26/24 04:45 DC 07/26/24 03:33 Diagnostic Test (Pha) (Accu-Chek Comfort Curve T) 1 strip ACHS 07/26/24 07:00 07/26/24 07:25 Insulin Human Regular (InsuLIN R) ACHS SC 07/26/24 07:00 07/26/24 07:56 Dextrose 50 ml UD PRN IV Blood Sugar LESS THAN 60 07/26/24 04:00 Ondansetron HCl (Zofran) 4 mg Q4HP PRN IV NAUSEA / VOMITING 07/26/24 04:00 Nitroglycerin (Ntrostat Sublingual) 0.4 mg Q5MINP PRN SL FOR CHEST PAIN 07/26/24 04:00 Morphine Sulfate 2 mg Q30M PRN IV FOR CHEST PAIN 07/26/24 04:00 Pravastatin Sodium (Pravachol Tablet) 20 mg HS PO 07/26/24 22:00 Review of Systems Constitutional: No symptom reported Ears, Nose, & Throat: No symptom reported Eyes: No symptom reported Neurological: No symptoms reported Pulmonary/Respiratory: No symptom reported Cardiovascular: Palpitations Gastrointestinal: Nausea Genitourinary: No symptom reported Musculoskeletal: No symptom reported Skin: No symptom reported Psychiatric: No symptom reported Endocrine: No symptom reported Hemotologic/Lymphatic: No symptom reported Vital Signs Vital Signs Date Time Temp Pulse Resp B/P (MAP) Pulse Ox O2 Delivery O2 Flow Rate FiO2 07/26/24 08:30 97 12 94 Room Air* 0 21 07/26/24 08:01 97.9 128/56 (80) 97.9 Physical Exam General Appearance: Cooperative. Well developed. Obese. In no acute distress Head Exam: Normal inspection Neck Exam: Normal inspection. Non-tender. Normal alignment Pulmonary/Respiratory: Chest non-tender. Clear bilateral breath sounds Cardiovascular/Chest: Irregularly irregular rate and rhythm. AFib with int ermittent RVR. Diffuse T-wave changes. No murmurs Peripheral Pulses: 2+ Radial (R). 2+ Radial (L). 2+ Pedal (R). 2+ Pedal (L) Abdominal Exam: Normal bowel sounds. Soft. Nontender. No hepatospenomegaly. No masses Ankle Exam: Negative ankle edema Lower extremities: Negative lower extremity edema Neuro/Mental Status: A&O x4. Coherent Thoughts/Psych: Normal thought pattern. Appropriate mood and affect. Good judgement and insight Appearance: In no acute distress Skin Exam: Normal inspection. Normal color. Warm. Dry Labs/Diagnostic Data Labs Test 07/26/24 07:23 07/26/24 03:56 07/26/24 01:58 07/26/24 01:52 Range/Units POC Glucose 241 H 70-106 mg/dl Vitamin B12 Level 796 211-911 pg/mL Troponin I High Sensitivity 47 </=54 ng/L Urine Opiates Screen Neg NEGATIVE Urine Fentanyl Screen Neg NEGATIVE Urine Barbiturates Screen Neg NEGATIVE Urine Phencyclidine Screen Neg NEGATIVE Urine Amphetamines Screen Neg NEGATIVE Urine Benzodiazepines Screen Neg NEGATIVE Urine Cocaine Screen Neg NEGATIVE Urine Cannabinoids Screen Neg NEGATIVE Test 07/26/24 01:09 Range/Units White Blood Count 9.9 # 4.4-10.8 10^3/uL Red Blood Count 5.94 H 4.5-5.90 10^6/uL Hemoglobin 18.6 #H 13.5-17.5 g/dL Hematocrit 53.5 #H 41.0-53.0 % Mean Corpuscular Volume 90.1 80.0-100.0 fL Mean Corpuscular Hemoglobin 31.3 28.0-32.0 pg Mean Corpuscular Hemoglobin Concent 34.8 32.0-36.0 g/dL Red Cell Distribution Width 13.3 11.8-14.3 % Platelet Count 267 140-450 10^3/uL Mean Platelet Volume 8.8 6.9-10.8 fL Neutrophils (%) (Auto) 52.1 37.0-80.0 % Lymphocytes (%) (Auto) 36.4 10.0-50.0 % Monocytes (%) (Auto) 8.5 0.0-12.0 % Eosinophils (%) (Auto) 2.1 0.0-7.0 % Basophils (%) (Auto) 0.9 0.0-2.0 % Neutrophils # (Auto) 5.1 1.6-8.6 10 ^3/uL Lymphocytes # (Auto) 3.6 0.4-5.4 10 ^3/uL Monocytes # (Auto) 0.8 0-1.3 10 ^3/uL Eosinophils # (Auto) 0.2 0-0.8 10 ^3/uL Basophils # (Auto) 0.1 0-0.2 10 ^3/uL Nucleated Red Blood Cells 0.2 % Sodium Level 134 #L 136-145 mmol/L Potassium Level 4.0 3.5-5.1 mmol/L Chloride Level 100 # 98-107 mmol/L Carbon Dioxide Level 23 20-31 mmol/L Anion Gap 11 5-15 Blood Urea Nitrogen 9 9-23 mg/dL Creatinine 1.25 0.700-1.30 mg/dL Glomerular Filtration Rate Calc 74 >90 mL/min BUN/Creatinine Ratio 7.2 L 10.0-20.0 Serum Glucose 271 H 74-106 mg/dL Hemoglobin A1c 9.9 H <5.7 % A1C Calcium Level 9.8 8.7-10.4 mg/dL Magnesium Level 2.1 1.6-2.6 mg/dL Total Bilirubin 1.0 0.2-1.0 mg/dL Aspartate Amino Transferase (AST) 31 13-40 U/L Alanine Aminotransferase (ALT) 37 7-40 U/L Alkaline Phosphatase 50 46-116 U/L Total Protein 8.2 5.7-8.2 g/dL Albumin 4.7 3.2-4.8 g/dL Triglycerides Level 114 < 150 mg/dL Cholesterol Level 178 < 200 mg/dL LDL Cholesterol 111 H < 100 mg/dL HDL Cholesterol 57 40-59 mg/dL Thyroid Stimulating Hormone (TSH) 4.87 H 0.55-4.78 uIU/mL Plasma/Serum Blood Alcohol 3.3 <10 mg/dL Assessment Atrial fibrillation with RVR, stage III, new onset Rule out structural heart disease Recent alcohol/caffeine use with acute dehydration Khq-yzuauwi-ssfsixghy diabetes mellitus Dyslipidemia, newly diagnosed ?Hypothyroidism Morbid obesity Plan/Recommendation We will continue the following plan/recommendations (Dr. Rolon): * Echocardiogram to evaluate cardiac function * Antiarrhythmic, amiodarone drip per pharmacy protocol * Rate control, initiate Cardizem therapy q6h * Anticoagulation, initiate therapeutic Lovenox * Transition to DOAC therapy when appropriate * [id number] Score 1 point. HAS-BLED Score 0 points * Initiate IVF and magnesium rider * Monitor ECG changes closely and notify In the setting of unsuccessful chemical cardioversion, the patient may be a candidate for a JOB & DC cardioversion. Thank you for allowing us to participate in this patient's care. Please call if you have any questions or concerns. This medical document was created using an electronic medical record system with voice recognition software and computerized dictation system. Although this document has been carefully reviewed, there might still be some phonetic and typographical errors. Occasional wrong-word or ``sound-alike substitutions may have occurred due to the inherent limitations of voice recognition software. These areas are purely typographical due to imperfections of the software programs and do not reflect any compromise in the patient's medical care. Please read the chart carefully and recognize, using context, where these substitutions have occurred. Plan discussed with: Patient, Other NYHA Physical activity limitations: NA Date of Service: Jul 26, 2024 Billing Provider: [facility] Cardiology Common Codes: [id number] INP/OBS CARE (High) RIAZ ROLON MD 07/28/24 0947: Date Seen: Jul 26, 2024 Allergies: Coded Allergies: NSAIDs (Verified Allergy, Unknown, 02/17/21) Home Meds Active Scripts Pravastatin Sodium (PRAVACHOL TABLET) 20 Mg Tb, 1 TAB PO QPM for 30 Days, #30 TAB 1 Refill Prov:JULIANO HURTADO RESIDENT 07/27/24 Diltiazem Hcl (Cardizem) 120 Mg Tab, 120 MG PO DAILY for 30 Days, #30 TAB Prov:JULIANO HURTADO RESIDENT 07/27/24 Apixaban Base (ELIQUIS) 5 Mg Tab, 5 MG PO BID for 30 Days, #60 TAB Prov:JULIANO HURTADO RESIDENT 07/27/24 Ibuprofen (Ibuprofen) 800 Mg Tab, 1 TAB PO Q6HPRN PRN, #30 TAB 0 Refills Prov:STAN KING 10/13/21 Plan/Recommendation new onset AF, several risk factors energy drinks obesity sleep apnea -all factors need to be addressed CHADSVAC is 2: DM, HTN needs anticoagulation Cardiology Common Codes: [id number] INP/OBS CARE (Mod) JUDY GARCIA Jul 26, 2024 11:13 RIAZ ROLON MD Jul 28, 2024 09:47
[2024-07-26] MEDS: dilTIAZem HCL 60 MG TAB PO ONE (11:57)
[2024-07-26] MEDS: ENOXAPARIN SOD 120 MG/0.8 ML SYRINGE SC ONE (11:59)
[2024-07-26] MEDS: MAGNESIUM SULFATE 1GM/100ML 100 ML IV ONE (12:01)
[2024-07-26] MEDS: SODIUM CHLORIDE 0.9% 1,000 ML IV ONE ×2 (12:01→12:03)
--- NOTE | 2024-07-26 13:35 | ECG ---
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
--- NOTE | 2024-07-26 15:43 | DVHPNRES ---
Progress Note Date Seen: Jul 26, 2024 Resident Creating Document: JULIANO HURTADO RESIDENT Medical Necessity Reason Pt with a Central, PICC or Fol: No Subjective Review of Systems This is a 44 years old male with past medical history of type 2 diabetes mellitus presented to the ED with a chief complaint of palpitation since 4 hours prior to this admission.Per patient, he attended a rodeo event where he had a large beer, C4 energy drinks x 2, and poor H2O intake. Later on during the day he took Viagra x 1 and had sexual intercourse with his . Post-coitus he developed some nausea and cardiac palpitations with his iwatch showing a heart rate up to the 150s bpm which prompted him to attend the nearest emergency room for further evaluation. Upon arrival to the emergency room he underwent multiple 12 lead electrocardiogram revealing an atrial fibrillation rhythm up to the 180s bpm with associated diffuse T-wave changes. welt rander reveals sustained atrial fibrillation with intermittent RVR. Denies chest pain, SOB, diaphoresis, dizziness, or syncopal events. Patient reports C4 energy drink intake on daily basis including 1-4 cans per day for the past 4 month. Patient was seen and examined on the bedside. He is alert oriented x3. complaint of mild palpitation and chest discomfort. No other active complaint at this time. Constitutional: No: Fever, Chills, Sweats, Weakness, Malaise, Other Eyes: No: Pain, Vision change, Conjunctivae inflammation, Eyelid inflammation, Other, Redness ENT: No: Ear pain, Ear discharge, Nose pain, Nose discharge, Nose congestion, Mouth pain, Mouth swelling, Throat pain, Throat swelling, Other Respiratory: Shortness of breath, improving No: Cough, Dry,Wheezing, Hemoptysis, Pleuritic Pain, Sputum, Wheezing, Other Cardiovascular: Palpitations No: Chest Pain, Orthopnea, Paroxysmal Noc. Dyspnea, Edema, Lt Headedness, Other Gastrointestinal: No: Nausea, Vomiting, Abdominal Pain, Diarrhea, Constipation, Melena, Hematochezia, Other Musculoskeletal: No: other, neck pain, shoulder pain, arm pain, back pain, hand pain, leg pain, foot pain Neurological:; No: Weakness, Numbness, Incoordination, Change in speech, Confusion, Seizures Objective vital signs Vital Sign Date Time Temp Pulse Resp B/P (MAP) Pulse Ox O2 Delivery O2 Flow Rate FiO2 07/26/24 11:57 95 127/70 07/26/24 10:22 98.7 18 96 98.7 07/26/24 10:22 Room Air* 0 21 Total Intake and Output 07/25/24 07/25/24 07/26/24 15:00 23:00 07:00 Intake Total 177.66 ml Balance 177.66 ml medications Current Medications Medications Dose Ordered Sig/Ajit Route Start Time Stop Time Status Last Admin Dose Admin Diagnostic Test (Pha) 1 strip ACHS 07/26/24 07:00 07/26/24 11:29 1 STRIP Insulin Human Regular ACHS SC 07/26/24 07:00 07/26/24 11:29 6 UNITS Dextrose 50 ml UD PRN IV 07/26/24 04:00 Ondansetron HCl 4 mg Q4HP PRN IV 07/26/24 04:00 Nitroglycerin 0.4 mg Q5MINP PRN SL 07/26/24 04:00 Morphine Sulfate 2 mg Q30M PRN IV 07/26/24 04:00 Pravastatin Sodium 20 mg HS PO 07/26/24 22:00 Diltiazem HCl 30 mg Q6HR GT 07/26/24 18:00 Enoxaparin Sodium 110 mg Q12HR SC 07/26/24 22:00 UNV Enoxaparin Sodium 110 mg Q12HR SC 07/26/24 22:00 Insulin Glargine 20 units HS SC 07/26/24 22:00 UNV Examination Physical examination: General Appearance: Alert, Oriented X3, Cooperative, mild distress HEENT: Atraumatic, PERRLA, EOMI, Mucous membrane moist/pink Respiratory: Clear to auscultation, Normal air movement Cardiovascular: Irregular rhythm, Normal S1, Normal S2, No murmurs, no chest wall tenderness Abdominal: Normal bowel sounds, Soft, No tenderness, No hepatosplenomegaly, No masses Extremities: No clubbing, No cyanosis, No edema, Normal pulses, No tenderness/swelling Skin: No rashes, No breakdown, No significant lesion Neuro: Normal gait, Normal speech, Strength at 5/5 X4 ext, Normal tone, Sensation intact, grossly intact cranial nerves Psych/Mental Status: Mental status NL, Mood NL laboratory and microbiology Laboratory Tests 07/26/24 01:09 Test 07/26/24 01:09 Range/Units Serum Glucose 271 H 74-106 mg/dL Labs and/or images reviewed: Labs reviewed by me, Image(s) reviewed by me Problem List/Assessment/Plan Problem List/Assessment/Plan Assessment and plan: # Newly diagnosed Afib with RVR and secondary hypercoagulable state # SIRS due to above # Hemoconcentration likely due to dehydration # Rule out structural heart disease - [id number] score 1 and HAS- BLED score 0 - EKG revealed atrial fibrillation with rate 180s with associated diffuse T wave changes - Troponins are unremarkable - Pending echo - IV NS @ 100 ml/hour - Keep potassium above 4 and magnesium 2 - IV amiodarone as per protocol - Cardizem 30 mg p.o. q.6 hours - Therapeutic Lovenox 110 mg sc b.i.d. - pravastatin 20 mg p.o. at HS # Type 2 diabetes mellitus, HbA1C 9.9 - Lantus 20 unit at HS and mild sliding scale of insulin # DVT prophylaxis - Patient is on Lovenox Goal of care discussed with the patient for 20 minutes full code Plan discussed with Dr. Mann Plan discussed with: Patient, Other (RN) My Orders My Orders Orders - JULIANO HURTADO RESIDENT Procedure Category Date Status Time * Cardiology Consult CONS 07/26/24 Transmitted 09:52 Insulin Lantus PHA 07/26/24 Logged (Glargine) (Lantus) 22:00 Addendum Addendum Addendum I was physically present for the romero portions of the service provided to patient by THE RESIDENT. I have reviewed the documentation, discussed the case with resident and agree with the resident's documentation except as noted. Also the patient's clinical case was discussed with the patient's nurse. This medical document was created using an electronic medical record system with computerized dictation system. Although this document has been carefully reviewed, there might still be some phonetic and typographical errors. These areas are purely typographical due to imperfections of the software programs, and do not reflect any compromise in the patient's medical care. Late signature. Date of Service: Jul 26, 2024 Billing Provider: CAMILO MANN MD Common Visit Codes: [id number] INP/OBS CARE(HIGH) Secondary Visit Codes: [id number] CARE PLAN 30 MINUTES (20 minutes) JULIANO HURTADO RESIDENT Jul 26, 2024 15:43 CAMILO MANN MD Jul 28, 2024 09:08
[2024-07-26 17:00] VITALS: BP 135/90; PULSE 75; RESP 20; TEMP 98.7; O2SAT 97
[2024-07-26 18:21] LABS: Urine Bacteria None Seen /hpf (None Seen)
[2024-07-26 18:31] LABS: Urine Blood Negative /uL (Negative); Urine Clarity Clear (Clear); Urine Color Light-Yellow (Yellow); Urine Protein, UAD Negative (Negative); Urine Squamous Epithelial Cell None Seen /hpf (<5); Urine Urobilinogen Normal (Negative); Urine WBC < 1 /HPF (0-3); Urine pH 5.5 (5.0-9.0)
[2024-07-26] MEDS: dilTIAZem HCL 60 MG TAB GT SCH (18:40)
[2024-07-26 20:00] VITALS: PULSE 88; RESP 18; O2SAT 98
[2024-07-26 21:00] VITALS: BP 144/88; PULSE 96; RESP 18; TEMP 98.7; O2SAT 96
[2024-07-26] MEDS: INSULIN LANTUS (GLARGINE) 1 /0.01ml (100units/ml) SC SCH (21:46)
[2024-07-26] MEDS: ENOXAPARIN SOD 120 MG/0.8 ML SYRINGE SC SCH (21:47)
[2024-07-26] MEDS: PRAVASTATIN SODIUM 20 MG TAB PO SCH (21:47)
[2024-07-26] MEDS ORDERED: ENOXAPARIN SOD 100 MG/1 ML SYRINGE SC SCH (22:00)
[2024-07-27] VITALS (7 sets, daily range): BP systolic 124–136; BP diastolic 82–92; PULSE 68–88; RESP 17–20; TEMP 97.9–98.5; O2SAT 95–98
[2024-07-27 07:58] LABS: Basophils # (auto) 0 10 ^3/uL (0-0.2); Basophils % (auto) 0.5 % (0.0-2.0); Eosinophils # (auto) 0.2 10 ^3/uL (0-0.8); Eosinophils % (auto) 2.3 % (0.0-7.0); Hematocrit 51.1 % (41.0-53.0); Hemoglobin 17.5 g/dL (13.5-17.5); Lymphocytes # (auto) 2.8 10 ^3/uL (0.4-5.4); Lymphocytes % (auto) 33.9 % (10.0-50.0); Mean Corpuscular Hgb Conc. 34.2 g/dL (32.0-36.0); Mean Corpuscular Volume 90.7 fL (80.0-100.0); Monocytes # (auto) 0.7 10 ^3/uL (0-1.3); Monocytes % (auto) 8.1 % (0.0-12.0); Neutrophils # (auto) 4.6 10 ^3/uL (1.6-8.6); Neutrophils % (auto) 55.2 % (37.0-80.0); Platelet Count (auto) 239 10^3/uL (140-450); Red Blood Cells 5.63 10^6/uL (4.5-5.90); White Blood Cell 8.3 10^3/uL (4.4-10.8)
[2024-07-27 08:07] LABS: Free Thyroxine Index 2.5 (1.2-4.9); Thyroxine (T4) 7.3 ug/dL (4.5-12.0)
--- NOTE | 2024-07-27 08:09 | DVHPN2 ---
RADHAJUDY [facility] 07/27/24 0809: Consult Progress Note Date Seen: Jul 27, 2024 Subjective Review of Systems: CVS:Normal, RESPIRATORY:Normal, NEURO:Normal Other Systems: Denies any cardiac symptoms Objective vital signs Vital Sign Date Time Temp Pulse Resp B/P (MAP) Pulse Ox O2 Delivery O2 Flow Rate FiO2 07/27/24 06:36 88 132/82 07/27/24 05:00 97.9 17 97 97.9 07/26/24 20:00 Room Air* 0 21 Total Intake and Output 07/26/24 07/26/24 07/27/24 15:00 23:00 07:00 Intake Total 199.99 ml 2500 ml 400 ml Output Total 650 ml 625 ml Balance 199.99 ml 1850 ml -225 ml medications Current Medications Medications Dose Ordered Sig/Ajit Route Start Time Stop Time Status Last Admin Dose Admin Diagnostic Test (Pha) 1 strip ACHS 07/26/24 07:00 07/27/24 06:37 1 STRIP Insulin Human Regular ACHS SC 07/26/24 07:00 07/27/24 06:44 6 UNITS Dextrose 50 ml UD PRN IV 07/26/24 04:00 Ondansetron HCl 4 mg Q4HP PRN IV 07/26/24 04:00 Nitroglycerin 0.4 mg Q5MINP PRN SL 07/26/24 04:00 Morphine Sulfate 2 mg Q30M PRN IV 07/26/24 04:00 Pravastatin Sodium 20 mg HS PO 07/26/24 22:00 07/26/24 21:47 20 MG Diltiazem HCl 30 mg Q6HR GT 07/26/24 18:00 07/27/24 06:36 30 MG Enoxaparin Sodium 110 mg Q12HR SC 07/26/24 22:00 UNV Enoxaparin Sodium 110 mg Q12HR SC 07/26/24 22:00 07/26/24 21:47 110 MG Insulin Glargine 20 units HS SC 07/26/24 22:00 07/26/24 21:46 20 UNITS Examination: LUNGS:Normal, CVS:Normal (NSR), NEURO:Normal laboratory and microbiology Laboratory Tests 07/26/24 01:09 Test 07/26/24 01:09 Range/Units Serum Glucose 271 H 74-106 mg/dL Problem List/Assessment/Plan Problem List/Assessment/Plan Paroxysmal atrial fibrillation with RVR, stage III, new onset Rule out structural heart disease Recent alcohol/caffeine use with acute dehydration Kma-ykrccqb-[id number] diabetes mellitus Dyslipidemia, newly diagnosed ?Hypothyroidism Morbid obesity Plan/Recommendation (Dr. Robledo) * Echocardiogram to evaluate cardiac function * Discontinue antiarrhythmic therapy * Rate control, transition to Cardizem LA QD * Anticoagulation, transition to Eliquis therapy for at least 4 wks * [id number] Score 1 point. HAS-BLED Score 0 points Successfully chemically cardioverted into a normal sinus rhythm. Recommend an outpatient event monitor and follow-up on transthoracic echocardiogram results as outpatient for which he is scheduled to follow-up with Dr. Calixto on 08/12/2024 at 1500. Strongly counseled of energy drinks and alcohol cessation as well as optimal hydration. Thank you for allowing us to participate in this patient's care. Please call if you have any questions or concerns. This medical document was created using an electronic medical record system with voice recognition software and computerized dictation system. Although this document has been carefully reviewed, there might still be some phonetic and typographical errors. Occasional wrong-word or ``sound-alike substitutions may have occurred due to the inherent limitations of voice recognition software. These areas are purely typographical due to imperfections of the software programs and do not reflect any compromise in the patient's medical care. Please read the chart carefully and recognize, using context, where these substitutions have occurred. Plan discussed with: Patient, Other Date of Service: Jul 27, 2024 Billing Provider: JUDY GARCIA Cardiology Common Codes: 13099-[id number] [facility](High RIAZ ROBLEDO MD 07/28/24 0945: JUDY GARCIA Jul 27, 2024 08:09 RIAZ ROBLEDO MD Jul 28, 2024 09:45
[2024-07-27 08:15] LABS: Chloride 99 mmol/L (98-107); Potassium 3.9 mmol/L (3.5-5.1)
[2024-07-27 08:16] LABS: Anion Gap 7 (5-15); Carbon Dioxide 29 mmol/L (20-31)
[2024-07-27 08:17] LABS: Calcium 9.1 mg/dL (8.7-10.4)
[2024-07-27 08:21] LABS: BUN/Creatinine Ratio 11.3 (10.0-20.0); Blood Urea Nitrogen 13 mg/dL (9-23)
[2024-07-27 08:24] LABS: Sodium 135 mmol/L (136-145)
[2024-07-27 08:25] LABS: Glucose 220 mg/dL (74-106)
[2024-07-27] MEDS: APIXABAN 5 MG TAB PO SCH (10:10)
[2024-07-27] MEDS: dilTIAZem 120MG ER CAP PO ONE (12:03)
[2024-07-27] MEDS ORDERED: APIX5TAB PO (14:37)
[2024-07-27] MEDS ORDERED: DILT120T8 PO (14:37)
[2024-07-27] MEDS ORDERED: PRAV20TA3 PO (14:37)
--- NOTE | 2024-07-27 15:52 | DVHDSRES ---
Discharge Summary Date of Admission Resident Creating Document: JULIANO HURTADO RESIDENT Jul 26, 2024 at 03:46 Date of Discharge: Jul 27, 2024 Admitting Diagnosis Palpitations and was diagnosed with AFib with RVR Wounds: No wound was present Labs/Diagnostic Data: Laboratory Results Test 07/27/24 11:40 07/27/24 07:46 07/26/24 17:05 07/26/24 03:56 POC Glucose 222 mg/dl (70-106) White Blood Count 8.3 10^3/uL (4.4-10.8) Red Blood Count 5.63 10^6/uL (4.5-5.90) Hemoglobin 17.5 g/dL (13.5-17.5) Hematocrit 51.1 % (41.0-53.0) Mean Corpuscular Volume 90.7 fL (80.0-100.0) Mean Corpuscular Hemoglobin 31.0 pg (28.0-32.0) Mean Corpuscular Hemoglobin Concent 34.2 g/dL (32.0-36.0) Red Cell Distribution Width 13.0 % (11.8-14.3) Platelet Count 239 10^3/uL (140-450) Mean Platelet Volume 8.5 fL (6.9-10.8) Neutrophils (%) (Auto) 55.2 % (37.0-80.0) Lymphocytes (%) (Auto) 33.9 % (10.0-50.0) Monocytes (%) (Auto) 8.1 % (0.0-12.0) Eosinophils (%) (Auto) 2.3 % (0.0-7.0) Basophils (%) (Auto) 0.5 % (0.0-2.0) Neutrophils # (Auto) 4.6 10 ^3/uL (1.6-8.6) Lymphocytes # (Auto) 2.8 10 ^3/uL (0.4-5.4) Monocytes # (Auto) 0.7 10 ^3/uL (0-1.3) Eosinophils # (Auto) 0.2 10 ^3/uL (0-0.8) Basophils # (Auto) 0 10 ^3/uL (0-0.2) Nucleated Red Blood Cells 0.0 % Sodium Level 135 mmol/L (136-145) Potassium Level 3.9 mmol/L (3.5-5.1) Chloride Level 99 mmol/L (98-107) Carbon Dioxide Level 29 mmol/L (20-31) Anion Gap 7 (5-15) Blood Urea Nitrogen 13 mg/dL (9-23) Creatinine 1.15 mg/dL (0.700-1.30) Glomerular Filtration Rate Calc 81 mL/min (>90) BUN/Creatinine Ratio 11.3 (10.0-20.0) Serum Glucose 220 mg/dL (74-106) Calcium Level 9.1 mg/dL (8.7-10.4) Urine Color Light-yellow (Yellow) Urine Clarity Clear (Clear) Urine pH 5.5 (5.0-9.0) Urine Specific [place] 1.020 (1.001-1.035) Urine Protein Negative (Negative) Urine Ketones Negative (Negative) Urine Blood Negative /uL (Negative) Urine Nitrite Negative (Negative) Urine Bilirubin Negative (Negative) Urine Urobilinogen Normal mg/dL (Negative) Urine Leukocyte Esterase Negative /uL (Negative) Urine RBC <1 /hpf (0 - 3) Urine Microscopic WBC < 1 /HPF (0-3) Urine Squamous Epithelial Cells None seen /hpf (<5) Urine Bacteria None seen /hpf (None Seen) Urine Glucose 4+ mg/dL (Normal) Vitamin B12 Level 796 pg/mL (211-911) Vitamin D 25-Hydroxy 31.7 ng/mL (30.0-100) Free Thyroxine Index 2.5 (1.2-4.9) Thyroxine (T4) 7.3 ug/dL (4.5-12.0) Triiodothyronine (T3) Uptake 34 % (24-39) Test 07/26/24 01:58 07/26/24 01:52 07/26/24 01:09 Troponin I High Sensitivity 47 ng/L (</=54) Urine Opiates Screen Neg (NEGATIVE) Urine Fentanyl Screen Neg (NEGATIVE) Urine Barbiturates Screen Neg (NEGATIVE) Urine Phencyclidine Screen Neg (NEGATIVE) Urine Amphetamines Screen Neg (NEGATIVE) Urine Benzodiazepines Screen Neg (NEGATIVE) Urine Cocaine Screen Neg (NEGATIVE) Urine Cannabinoids Screen Neg (NEGATIVE) Hemoglobin A1c 9.9 % A1C (<5.7) Magnesium Level 2.1 mg/dL (1.6-2.6) Total Bilirubin 1.0 mg/dL (0.2-1.0) Aspartate Amino Transferase (AST) 31 U/L (13-40) Alanine Aminotransferase (ALT) 37 U/L (7-40) Alkaline Phosphatase 50 U/L (46-116) Total Protein 8.2 g/dL (5.7-8.2) Albumin 4.7 g/dL (3.2-4.8) Triglycerides Level 114 mg/dL (< 150) Cholesterol Level 178 mg/dL (< 200) LDL Cholesterol 111 mg/dL (< 100) HDL Cholesterol 57 mg/dL (40-59) Thyroid Stimulating Hormone (TSH) 4.87 uIU/mL (0.55-4.78) Plasma/Serum Blood Alcohol 3.3 mg/dL (<10) Other Laboratory Tests 07/27/24 07:46 Brief Hx & Hospital Course: This is a 44 years old male with past medical history of type 2 diabetes mellitus presented to the ED with a chief complaint of palpitation since 4 hours prior to this admission.Per patient, he attended a rodeo event where he had a large beer, C4 energy drinks x 2, and poor H2O intake. Later on during the day he took Viagra x 1 and had sexual intercourse with his . Post-coitus he developed some nausea and cardiac palpitations with his iwatch showing a heart rate up to the 150s bpm which prompted him to attend the nearest emergency room for further evaluation. Upon arrival to the emergency room he underwent multiple 12 lead electrocardiogram revealing an atrial fibrillation rhythm up to the 180s bpm with associated diffuse T-wave changes. monitor technician reveals sustained atrial fibrillation with intermittent RVR. Denies chest pain, SOB, diaphoresis, dizziness, or syncopal events. Patient reports C4 energy drink intake on daily basis including 1-4 cans per day for the past 4 month. Hospital course: Patient was initially presented with newly diagnosed AFib with RVR and hemoconcentration likely due to dehydration. Cardiology was on board and chemical cardioversion was done. Patient was treated with IV normal saline at 100 mL/hours, IV amiodarone as per protocol, Cardizem 30 mg q.6 hours, therapeutic Lovenox 110 mg sc b.i.d, and pravastatin 20 mg at HS. Hemoglobin A1c was 9.9 and treated with Lantus 20 units at HS and mild sliding scale of insulin. patient was subsequently converted to sinus rhythm and today cardiology cleared the patient for discharge. patient is being discharged to home with Eliquis 5 mg p.o. b.i.d., Cardizem 120 mg daily, pravastatin 20 mg at bedtime and advised the patient to follow up with DC clinic in 1 week and with Cardiology in 2 weeks. Physical examination on the day of discharge: General Appearance: Alert, Oriented X3, Cooperative, no distress HEENT: Atraumatic, PERRLA, EOMI, Mucous membrane moist/pink Respiratory: Clear to auscultation, Normal air movement Cardiovascular: Regular rhythm, Normal S1, Normal S2, No murmurs, no chest wall tenderness Abdominal: Normal bowel sounds, Soft, No tenderness, No hepatosplenomegaly, No masses Extremities: No clubbing, No cyanosis, No edema, Normal pulses, No tenderness/swelling Skin: No rashes, No breakdown, No significant lesion Neuro: Normal gait, Normal speech, Strength at 5/5 X4 ext, Normal tone, Sensation intact, grossly intact cranial nerves Psych/Mental Status: Mental status NL, Mood N Discussed with Dr. Mann Consults/Reason for consult Cardiology was consulted for AFib with RVR Operations or Procedures CHEST RADIOGRAPH Indication: SOB Technique: Single frontal view of the chest was obtained Comparison: None FINDINGS: Lines and Tubes: None Lungs: No focal consolidation. Pleura: No effusion. No pneumothorax. Cardiomediastinal contours: Unremarkable Bones: No acute osseous abnormality. Old right clavicular fracture. IMPRESSION: 1. No acute cardiopulmonary disease. Condition at Discharge: Stable Final Diagnosis/Problems List # Newly diagnosed Afib with RVR and secondary hypercoagulable state # SIRS due to above # Hemoconcentration likely due to dehydration # Rule out structural heart disease # Type 2 diabetes mellitus, HbA1C 9.9 Discharge Disposition: Home Discharge Instruct/Medications Diet: Consistent carbohydrate, Cardiac 2g Na,low cholest Activity: No Restrictions, As Tolerated Follow Up/Referral: Follow up with DC clinic in 1 week to follow up regarding diabetes mellitus treatment options Follow up with outpatient Cardiology in 2 weeks. Medications: As per EMR; discharged on Eliquis 5 mg twice a day along with diltiazem extended release Discharge Statement: "Patient was advised to return to the ER or call 911 if any headaches, dizziness, shortness of breath, chest pain, abdominal pain, bleeding, fevers, or worsening of medical condition. Patient was counseled about treatment plan, medications, possible side effects, patientverbalized understanding. All questions were answered to the best of my ability. This discharge took greater then 30 minutes in planning, reviewing documentation, counseling the patient, and discussing with other team members." Addendum Addendum Addendum I was physically present for the romero portions of the service provided to patient by THE RESIDENT. I have reviewed the documentation, discussed the case with resident and agree with the resident's documentation except as noted. Also the patient's clinical case was discussed with the patient's nurse. This medical document was created using an electronic medical record system with computerized dictation system. Although this document has been carefully reviewed, there might still be some phonetic and typographical errors. These areas are purely typographical due to imperfections of the software programs, and do not reflect any compromise in the patient's medical care. Late signature. Date of Service: Jul 27, 2024 Billing Provider: CAMILO MANN MD Common Visit Codes: 73065-QEX/OBS DISCH DAY >30min JULIANO HURTADO RESIDENT Jul 27, 2024 15:52 CAMILO MANN MD Jul 28, 2024 09:12
--- NOTE | 2024-07-28 07:56 | DVHSR ---
APPROVED REPORT EXAM: Two-dimensional and M-mode echocardiogram with Doppler and color Doppler. Blood Pressure: 146/83 mmHg INDICATION AFIB RISK FACTORS Height: 68, Weight: 245 DIMENSIONS LVDd3.8 (3.8-5.7cm)LA (2D)4.2 (1.9-4.0cm)Aortic Root3.8 (2.0-3.7cm) LVDs2.8 (2.5-4.0cm)LA (MM) (1.9-4.0cm)Aortic Cusp Exc1.8 (1.5-2.0cm) EF (%) 54.0 (55-70%)Rt. Atrium4.3 (1.9-4.0cm)Asc. Aorta cm IVSd1.3 (0.7-1.1cm)RV (D) (1.8-2.4cm) PWd1.4 (0.7-1.1cm) Mitral Valve MitralMitral Stenosis E wave0.96m/sMV Mean GR.mmHg E/A ratio0.02D MVAcm2 Aortic Valve Aortic ValveAortic Stenosis V11.10m/Jacob Mean GR.4mmHg V21.31m/Jacob Peak GR.7mmHg LVOT Diameter2.1 (1.8-2.4cm)Doppler AVA2.91cm2 Pulmonic Valve V20.96m/s Other Information Technically limited study due to abnormal rhythm. Conclusion lvef 60% by visual estimate nomal rv function no severe valve abnormalities noted
[2024-07-28] MEDS ORDERED: dilTIAZem 120MG ER CAP PO SCH (10:00)
== END 2024-07-27 16:26 | disposition home or self-care (01) | DRG 309 ==
LOC: ER 00:58 → OVERFLOW 03:46 → TELE-WESTW 10:06
PROVIDERS: ADMIT Internal Medicine; ATTEND Emergency Medicine
DX: I48.91 Unspecified atrial fibrillation (principal); D68.69 Other thrombophilia; R65.10 Systemic inflammatory response syndrome (SIRS) of non-infectious origin without acute organ dysfunction; E03.9 Hypothyroidism, unspecified; E78.5 Hyperlipidemia, unspecified; E66.01 Morbid (severe) obesity due to excess calories; E11.9 Type 2 diabetes mellitus without complications; I10 Essential (primary) hypertension; E86.0 Dehydration; Z79.1 Long term (current) use of non-steroidal anti-inflammatories (NSAID); Z79.899 Other long term (current) drug therapy; Z79.01 Long term (current) use of anticoagulants; Z68.36 Body mass index [BMI] 36.0-36.9, adult; Z79.84 Long term (current) use of oral hypoglycemic drugs
CPT/HCPCS: 36415; 71045; 80048; 80053; 80061; 80307; 80320; 81001; 82306; 82607; 82962; 83036; 83735; 84443; 84484; 85025; 93005; 93306; 96374; 96375; 99291; G0378; J0153; J1815

== ENCOUNTER 2024-07-31 02:37 | Inpatient (IN) | payer OTHER, MEDICAID ==
[~2024-07-31] VITALS: Ht 172.7 cm; Wt 110.9 kg
[~2024-07-31 02:37] MED LIST changes: +APIX5TAB PO; +DILT120T8 PO; +PRAV20TA3 PO
--- NOTE | 2024-07-31 03:05 | ED.PDOC ---
History of Present Illness HPI Comments 44-year-old male came to ER for high blood sugar. Patient recently discharged here for new onset AFib. Patient does have history of diabetes, stopped taking his insulin, instead relying om exercise and diet. Noted that his blood sugar levels has been elevated recently. Blood sugar taken at home was 465. Chief Complaint: High blood sugar Time Seen by MD: 03:05 Primary Care Provider: Dr. Jones Reviewed Notes: Nurses Notes Allergies: Coded Allergies: NSAIDs (Verified Allergy, Unknown, 02/17/21) Home Meds Active Scripts Pravastatin Sodium (PRAVACHOL TABLET) 20 Mg Tb, 1 TAB PO QPM for 30 Days, #30 TAB 1 [facility]24 Diltiazem Hcl (Cardizem) 120 Mg Tab, 120 MG PO DAILY for 30 Days, #30 TAB Prov:[facility] 07/27/24 Apixaban Base (ELIQUIS) 5 Mg Tab, 5 MG PO BID for 30 Days, #60 TAB Prov:[facility] 07/27/24 Ibuprofen (Ibuprofen) 800 Mg Tab, 1 TAB PO Q6HPRN PRN, #30 TAB 0 Refills Prov:STAN KING 10/13/21 Information Source: Patient Mode of Arrival: Ambulatory Severity: Moderate Timing: Days Duration: Intermittent Prehospital treatment: None Past Medical History PAST MEDICAL HISTORY: AFIB, DM Surgical History: Denies all surgeries Family History Family History: Reviewed,noncontributory to illness Social History Smoker: Non-Smoker Alcohol: Denies ETOH Use Drugs: Denies Drug Use Lives In: Home Constitutional: denies: chills, diaphoresis, fatigue, fever, malaise, sweats, weakness, others EENTM: denies: blurred vision, double vision, ear bleeding, ear discharge, ear drainage, ear pain, ear ringing, eye pain, eye redness, hearing loss, mouth pain, mouth swelling, nasal discharge, nose bleeding, nose congestion, nose pain, photophobia, tearing, throat pain, throat swelling, voice changes, others Respiratory: denies: cough, hemoptysis, orthopnea, SOB at rest, shortness of breath, SOB with excertion, stridor, wheezing, others Cardiovascular: denies: chest pain, dizzy spells, diaphoresis, Dyspnea on exertion, edema, irregular heart beat, left arm pain, lightheadedness, palpitations, PND, syncope, others Gastrointestinal: denies: abdomen distended, abdominal pain, blood streaked bowels, constipated, diarrhea, dysphagia, difficulty swallowing, hematemesis, melena, nausea, poor appetite, poor fluid intake, rectal bleeding, rectal pain, vomiting, others Genitourinary: denies: burning, dysuria, flank pain, frequency, hematuria, incontinence, penile discharge, penile sore, pain, testicle pain, testicle swelling, urgency, others Neurological: denies: dizziness, fainting, headache, left sided numbness, left sided weakness, numbness, paresthesia, pre-existing deficit, right sided numbness, right sided weakness, seizure, speech problems, tingling, tremors, weakness, others Musculoskeletal: denies: back pain, gout, joint pain, joint swelling, muscle pain, muscle stiffness, neck pain, others Integumetry: denies: bruises, change in color, change in hair/nails, dryness, laceration, lesions, lumps, rash, wounds, others Allergic/Immunocompromised: denies: Difficulty Healing, Frequent Infections, Hives, Itching, others Hematologic/Lymphatic: denies: anemia, blood clots, easy bleeding, easy bruising, swollen glands, others Endocrine: denies: excessive hunger, excessive sweating, excessive thirst, excessive urination, flushing, intolerance to cold, intolerance to heat, unexplained weight gain, unexplained weight loss, others Psychiatric: denies: anxiety, bipolar disorder, depression, hopeless, panic disorder, schizophrenia, sleepless, suicidal, others Physical Exam General Appearance: No Apparent Distress, Normal HEENT: Normal ENT Inspection, Pharynx Normal, TMs Normal Neck: Full Range of Motion, Non-Tender, Normal, Normal Inspection Respiratory: Chest Non-Tender, Lungs Clear, No Accessory Muscle Use, No Respiratory Distress, Normal Breath Sounds Cardiovascular: No Edema, No JVD, No Murmur, No Gallop, Normal Peripheral Pulses, Regular Rate/Rhythm Breast Exam: Deferred Gastrointestinal: No Organomegaly, Non Tender, No Pulsatile Mass, Normal Bowel Sounds, Soft Genitalia: Deferred Pelvic: Deferred Rectal: Deferred Extremities: No calf tenderness, Normal capillary refill, Normal inspection, Normal range of motion, Non-tender, No pedal edema Musculoskeletal : Apperance: Normal Neurologic: Alert, 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 Was a procedure done?: No Differential Dx Considerations may include: Anemia, electrolyte imbalance, hyperglycemia, medication noncompliance X-Ray, Labs, Meds, VS Vital Signs Date Time Temp Pulse Resp B/P (MAP) Pulse Ox O2 Delivery O2 Flow Rate FiO2 07/31/24 03:06 96 07/31/24 02:53 97.6 112 18 166/105 (125) 97 97.6 Lab Test 07/31/24 03:02 07/31/24 02:57 07/31/24 02:53 Range/Units White Blood Count 8.2 4.4-10.8 10^3/uL Red Blood Count 6.09 H 4.5-5.90 10^6/uL Hemoglobin 18.8 H 13.5-17.5 g/dL Hematocrit 54.5 H 41.0-53.0 % Mean Corpuscular Volume 89.6 80.0-100.0 fL Mean Corpuscular Hemoglobin 30.9 28.0-32.0 pg Mean Corpuscular Hemoglobin Concent 34.5 32.0-36.0 g/dL Red Cell Distribution Width 12.7 11.8-14.3 % Platelet Count 275 140-450 10^3/uL Mean Platelet Volume 9.1 6.9-10.8 fL Neutrophils (%) (Auto) 52.3 37.0-80.0 % Lymphocytes (%) (Auto) 35.8 10.0-50.0 % Monocytes (%) (Auto) 8.6 0.0-12.0 % Eosinophils (%) (Auto) 2.7 0.0-7.0 % Basophils (%) (Auto) 0.6 0.0-2.0 % Neutrophils # (Auto) 4.3 1.6-8.6 10 ^3/uL Lymphocytes # (Auto) 2.9 0.4-5.4 10 ^3/uL Monocytes # (Auto) 0.7 0-1.3 10 ^3/uL Eosinophils # (Auto) 0.2 0-0.8 10 ^3/uL Basophils # (Auto) 0 0-0.2 10 ^3/uL Nucleated Red Blood Cells 0.1 % Sodium Level 134 L 136-145 mmol/L Potassium Level 4.1 3.5-5.1 mmol/L Chloride Level 99 98-107 mmol/L Carbon Dioxide Level 28 20-31 mmol/L Anion Gap 7 5-15 Blood Urea Nitrogen 10 9-23 mg/dL Creatinine 1.30 0.700-1.30 mg/dL Glomerular Filtration Rate Calc 70 >90 mL/min BUN/Creatinine Ratio 7.7 L 10.0-20.0 Serum Glucose 358 #H 74-106 mg/dL Calcium Level 10.4 8.7-10.4 mg/dL POC Glucose 328 H 70-106 mg/dl Urine Color Light-yellow Yellow Urine Clarity Clear Clear Urine pH 6.0 5.0-9.0 Urine Specific [place] 1.030 1.001-1.035 Urine Protein 1+ H Negative Urine Ketones Negative Negative Urine Blood Negative Negative /uL Urine Nitrite Negative Negative Urine Bilirubin Negative Negative Urine Urobilinogen Normal Negative mg/dL Urine Leukocyte Esterase Negative Negative /uL Urine RBC <1 0 - 3 /hpf Urine Microscopic WBC < 1 0-3 /HPF Urine Squamous Epithelial Cells Few <5 /hpf Urine Bacteria None seen None Seen /hpf Urine Glucose 4+ H Normal mg/dL Time of 1ST Reevaluation: 03:01 Reevaluation 1ST: Unchanged Patient Education/Counseling: Diagnosis, Treatment Family Education/Counseling: No Family Present Departure 1 Departure Time of Disposition: 04:55 (Patient with uncontrolled diabetes and near- syncope. We will admit patient for further workup and expert consultation) Impression: Primary Impression: Uncontrolled diabetes mellitus Qualified Codes: E11.65 - Type 2 diabetes mellitus with hyperglycemia Disposition: ADMITTED INPATIENT Admit to: Med Surg Condition: Serious Critical Care Note Critical Care Time?: Yes (35 min-critical care time only) Critical care comment: Hyperglycemia Authorized and Performed by: Marbin Rust MD Total critical care time: Approximately thirty-three minutes Due to a high probability of clinically significant, life threatening deterioration, the patient required my highest level of preparedness to intervene emergently and I personally spent this critical care time directly and personally managing the patient. This critical care time included obtaining a history; examining the patient; pulse oximetry; ordering and review of studies; arranging urgent treatment with development of a management plan; evaluation of patient's response to treatment; frequent reassessment; and, discussions with other providers. This critical care time was performed to assess and manage the high probability of imminent, life-threatening deterioration that could result in multi-organ failure. It was exclusive of separately billable procedures and treating other patients and teaching time. Please see my other sections and the rest of the note for further information on patient assessment and treatment. Stability Stability form required: No Heart Score Heart Score: Heart Score Response (Comments) Value History N/A 0 EKG N/A 0 Age N/A 0 Risk Factors N/A 0 Troponin N/A 0 Total 0 I personally scribed for MARBIN RUST MD ([email or web address]) on 07/31/24 at 03:05. Electronically submitted by Norman Parkinson ([email or web address]). MARBIN RUST MD July 31, 2024 03:05
[2024-07-31 03:26] LABS: Urine Bacteria None Seen /hpf (None Seen)
[2024-07-31 03:29] LABS: Basophils # (auto) 0 10 ^3/uL (0-0.2); Basophils % (auto) 0.6 % (0.0-2.0); Eosinophils # (auto) 0.2 10 ^3/uL (0-0.8); Eosinophils % (auto) 2.7 % (0.0-7.0); Hematocrit 54.5 % (41.0-53.0); Hemoglobin 18.8 g/dL (13.5-17.5); Lymphocytes # (auto) 2.9 10 ^3/uL (0.4-5.4); Lymphocytes % (auto) 35.8 % (10.0-50.0); Mean Corpuscular Hemoglobin 30.9 pg (28.0-32.0); Mean Corpuscular Hgb Conc. 34.5 g/dL (32.0-36.0); Mean Corpuscular Volume 89.6 fL (80.0-100.0); Monocytes # (auto) 0.7 10 ^3/uL (0-1.3); Monocytes % (auto) 8.6 % (0.0-12.0); Neutrophils # (auto) 4.3 10 ^3/uL (1.6-8.6); Neutrophils % (auto) 52.3 % (37.0-80.0); Nucleated Red Blood Cells % 0.1 %; Platelet Count (auto) 275 10^3/uL (140-450); Red Blood Cells 6.09 10^6/uL (4.5-5.90); Red Cell Distribution Width 12.7 % (11.8-14.3); White Blood Cell 8.2 10^3/uL (4.4-10.8)
[2024-07-31 03:35] LABS: Chloride 99 mmol/L (98-107); Potassium 4.1 mmol/L (3.5-5.1)
[2024-07-31 03:36] LABS: Urine Blood Negative /uL (Negative); Urine Clarity Clear (Clear); Urine Color Light-Yellow (Yellow); Urine Protein, UAD 1+ (Negative); Urine Squamous Epithelial Cell FEW /hpf (<5); Urine Urobilinogen Normal (Negative); Urine WBC < 1 /HPF (0-3)
[2024-07-31 03:36] LABS: Anion Gap 7 (5-15); Carbon Dioxide 28 mmol/L (20-31)
[2024-07-31 03:37] LABS: Calcium 10.4 mg/dL (8.7-10.4)
[2024-07-31 03:42] LABS: BUN/Creatinine Ratio 7.7 (10.0-20.0); Blood Urea Nitrogen 10 mg/dL (9-23)
[2024-07-31 03:45] LABS: Glucose 358 mg/dL (74-106); Sodium 134 mmol/L (136-145)
--- NOTE | 2024-07-31 04:30 | DVH ---
CHEST RADIOGRAPH Indication: palpitations Technique: Single frontal view of the chest was obtained COMPARISON: XY CHEST PORTABLE on DOS: 07/26/24 FINDINGS: Lines and Tubes: None Lungs: Clear Pleura: No effusion. No pneumothorax. Cardiomediastinal contours: Unremarkable Bones: Unremarkable IMPRESSION: 1. No acute disease.
--- NOTE | 2024-07-31 05:00 | ECG ---
[facility] Test Date: 2024-07-31 Test Time: 03:06:01 Pat Name: MARY LYNN Department: ED Room: Gender: M [employer]: YE : 1980 Requested By: MARBIN CABRALES Order Number: [id number] Reading MD: Measurements Intervals Ridge Rate: 96 P: 49 UT: 163 QRS: 74 QRSD: 101 T: -24 QT: 326 QTc: 412 Interpretive Statements Sinus rhythm Borderline T abnormalities, inferior leads Please click the below link to view image of tracing.
--- NOTE | 2024-07-31 07:54 | DVHHP2 ---
History of Present Illness Reason for Visit: Elevated blood sugar History of Present Illness Jw Mccollum is a 44-year-old male with past medical history of hyperlipidemia, diabetes, and AFib who presents to the ED with elevated blood sugar. Patient reports that he was taking Basaglar1 year ago and had dropped his A1c from 11-6% and his primary agreed to stop his Basaglar. Patient is here at the chair side with his Sonja. Patient states that he was also here recently for an unrelated issue. He reports that he is compliant with his medications. Patient denies any chest pain, shortness of breath, fever, chills, lightheadedness, weakness, dizziness, urinary symptoms, increased thirst, recent travels, recent sick contacts, or recent ingestion of spoiled food. Cardiovascular: AFIB, hyperipidemia Endocrine: Diabetes Past Surgical History: None Family History: Hypertension, Other (Mom with hypertension) Smoke: No ALCOHOL: occassional Drugs: None Lives: with Family Domestic Violence: Neg Review of Systems Other Elevated Blood sugar Allergies: Coded Allergies: NSAIDs (Verified Allergy, Unknown, 02/17/21) Exam Vital Signs Vital Signs Date Time Temp Pulse Resp B/P (MAP) Pulse Ox O2 Delivery O2 Flow Rate FiO2 07/31/24 06:11 98.5 96 18 157/97 (117) 96 98.5 General Appearance: Alert, Oriented X3, Cooperative, No acute distress HEENT: Atraumatic, PERRLA, EOMI, Mucous membr. moist/pink Respiratory: Clear to auscultation, Normal air movement Cardiovascular: Normal S1, Normal S2, No murmurs Abdominal: Normal bowel sounds, Soft, No tenderness, No hepatospenomegaly Extremities: No clubbing, No cyanosis, No edema Skin: No significant lesion Neuro: Normal gait, Normal speech, Strength at 5/5 X4 ext, Normal tone, S ensation intact Psych/Mental Status: Mental status NL, Mood NL Labs/Xrays Labs Test 07/31/24 06:06 07/31/24 03:02 07/31/24 02:53 Range/Units POC Glucose 332 H 70-106 mg/dl White Blood Count 8.2 4.4-10.8 10^3/uL Red Blood Count 6.09 H 4.5-5.90 10^6/uL Hemoglobin 18.8 H 13.5-17.5 g/dL Hematocrit 54.5 H 41.0-53.0 % Mean Corpuscular Volume 89.6 80.0-100.0 fL Mean Corpuscular Hemoglobin 30.9 28.0-32.0 pg Mean Corpuscular Hemoglobin Concent 34.5 32.0-36.0 g/dL Red Cell Distribution Width 12.7 11.8-14.3 % Platelet Count 275 140-450 10^3/uL Mean Platelet Volume 9.1 6.9-10.8 fL Neutrophils (%) (Auto) 52.3 37.0-80.0 % Lymphocytes (%) (Auto) 35.8 10.0-50.0 % Monocytes (%) (Auto) 8.6 0.0-12.0 % Eosinophils (%) (Auto) 2.7 0.0-7.0 % Basophils (%) (Auto) 0.6 0.0-2.0 % Neutrophils # (Auto) 4.3 1.6-8.6 10 ^3/uL Lymphocytes # (Auto) 2.9 0.4-5.4 10 ^3/uL Monocytes # (Auto) 0.7 0-1.3 10 ^3/uL Eosinophils # (Auto) 0.2 0-0.8 10 ^3/uL Basophils # (Auto) 0 0-0.2 10 ^3/uL Nucleated Red Blood Cells 0.1 % Sodium Level 134 L 136-145 mmol/L Potassium Level 4.1 3.5-5.1 mmol/L Chloride Level 99 98-107 mmol/L Carbon Dioxide Level 28 20-31 mmol/L Anion Gap 7 5-15 Blood Urea Nitrogen 10 9-23 mg/dL Creatinine 1.30 0.700-1.30 mg/dL Glomerular Filtration Rate Calc 70 >90 mL/min BUN/Creatinine Ratio 7.7 L 10.0-20.0 Serum Glucose 358 #H 74-106 mg/dL Calcium Level 10.4 8.7-10.4 mg/dL Urine Color Light-yellow Yellow Urine Clarity Clear Clear Urine pH 6.0 5.0-9.0 Urine Specific [place] 1.030 1.001-1.035 Urine Protein 1+ H Negative Urine Ketones Negative Negative Urine Blood Negative Negative /uL Urine Nitrite Negative Negative Urine Bilirubin Negative Negative Urine Urobilinogen Normal Negative mg/dL Urine Leukocyte Esterase Negative Negative /uL Urine RBC <1 0 - 3 /hpf Urine Microscopic WBC < 1 0-3 /HPF Urine Squamous Epithelial Cells Few <5 /hpf Urine Bacteria None seen None Seen /hpf Urine Glucose 4+ H Normal mg/dL CHEST RADIOGRAPH Indication: palpitations Technique: Single frontal view of the chest was obtained COMPARISON: XY CHEST PORTABLE on DOS: 07/26/24 FINDINGS: Lines and Tubes: None Lungs: Clear Pleura: No effusion. No pneumothorax. Cardiomediastinal contours: Unremarkable Bones: Unremarkable IMPRESSION: 1. No acute disease. Assessment/Plan Assessment/Plan Assessment Diabetes type 2 uncontrolled Hyponatremia Obesity Alcohol use History of hyperlipidemia History of AFib Plan Admit to med surge Antiemetics UA EKG Chest x-ray noted Hemoglobin A1c ISS and Accu-Cheks Diet Home medications reconciled DVT prophylaxis-patient on apixaban PUD prophylaxis-not indicated no history of GERD or GI bleed Discussed plan of care with patient, patient's spouse, and nurse Counseled patient on cessation of alcohol use Counseled patient on lifestyle modifications, diet, and exercise Plan discussed with: Patient, Spouse My Orders Orders - KANG RED Procedure Category Date Status Time Admit ADMIT 07/31/24 Transmitted 07:47 Allergies LUIS 07/31/24 Transmitted 07:47 Code Status CODE 07/31/24 Transmitted 07:47 Ondansetron Hcl PHA 07/31/24 Transmitted (Zofran) 08:00 Complete Blood Count LAB 08/01/24 Verified 04:00 Comprehensive LAB 08/01/24 Verified Metabolic Panel 04:00 Cardiac DIET 07/31/24 Transmitted Diet-2gna,Lofat,Lochol Breakfast Acetaminophen Tablet PHA 07/31/24 Transmitted (Tylenol Tablet) 08:00 Glucose Blood PHA 07/31/24 Transmitted (Accu-Chek Comfort 11:30 Mild Sliding Scale PHA 07/31/24 Transmitted 11:30 Dextrose 50% Syringe PHA 07/31/24 Transmitted 08:00 Date of Service: July 31, 2024 Billing Provider: KANG RED Common Visit Codes: [id number] INP/OBS CARE (HIGH) KANG RED July 31, 2024 07:54
[2024-07-31] MEDS ORDERED: ONDANSETRON HCL 4 MG/2 ML VIAL IV PRN (08:00)
[2024-07-31] MEDS ORDERED: DEXTROSE (50%) 50ML SYRG IV PRN (08:00)
[2024-07-31] MEDS ORDERED: ACETAMINOPHEN 325 MG TAB PO PRN (08:00)
[2024-07-31 08:58] VITALS: PULSE 74; RESP 20; O2SAT 96
[2024-07-31] MEDS: APIXABAN 5 MG TAB PO SCH (10:18)
[2024-07-31] MEDS: dilTIAZem HCL 60 MG TAB PO SCH (10:19)
[2024-07-31 10:22] VITALS: BP 154/100; PULSE 84; RESP 19; TEMP 98.2; O2SAT 96
[2024-07-31] MEDS: ACCU-CHEK COMFORT CURVE STRIP VI SCH (11:21)
[2024-07-31] MEDS: InsuLIN REG 1unit/0.01ml Soln (100units/ml) SC SCH (11:22)
[2024-07-31 13:30] VITALS: BP 136/76; PULSE 77; RESP 19; TEMP 98; O2SAT 96
[2024-07-31] MEDS ORDERED: PRAVASTATIN SODIUM 20 MG TAB PO SCH (22:00)
== END 2024-07-31 16:40 | disposition left against medical advice (07) | DRG 638 ==
LOC: ER 02:37 → OVERFLOW 07:47
DX: E11.65 Type 2 diabetes mellitus with hyperglycemia (principal); E87.1 Hypo-osmolality and hyponatremia; E66.9 Obesity, unspecified; Z68.37 Body mass index [BMI] 37.0-37.9, adult; E78.5 Hyperlipidemia, unspecified; I48.91 Unspecified atrial fibrillation; Z82.49 Family history of ischemic heart disease and other diseases of the circulatory system; Z88.8 Allergy status to other drugs, medicaments and biological substances
CPT/HCPCS: 36415; 71045; 80048; 81001; 82962; 85025; 93005; 99291; G0378; J1815

== ENCOUNTER 2024-10-27 09:01 | Outpatient (CLI) | payer OTHER, MEDICAID ==
[~2024-10-27] VITALS: Ht 172.7 cm; Wt 106.6 kg
[2024-10-27] MEDS ORDERED: REGADENOSON 0.4 MG/5 ML SYRG IV ONE (10:59)
--- NOTE | 2024-10-27 12:05 | DVHCARD ---
Cardiology Stress Test [place] Treadmill Stress Test [place] Referring MD: MD Durga Protocol: Ogmez (with cardiolite) Reason for referral: Chest Pain Target heart Rate:@85%: 157 Percent MPHR: 178 METS: 10.4 Resting Heart rate: 77 Resting Blood Pressure: 130/91 Exercise Heart Rate: 142 Exercise Blood Pressure: 171/91 Baseline EKG: Normal sinus rhythm with ST-depression in lead I Stress EKG: Sinus tachycardia with ST depression in lead I Functional Capacity: Good Normal Heart Rate Response: Adequate Blood Pressure Response: Hypertensive Clinical response: Non-ischemic Arrhythmia?: No Cardiolite Injected?: Yes ST-T Changes: Non/Minimal Probability of Inducible Ische: Perfusion result pending Date of Service: Oct 27, 2024 Billing Provider: DIMPLE MENDIOLA Cardiology Common Codes: PROCEDURE ONLY Treadmill W/Cardiolite Nuclear: [id number], INTERP, RPT DIMPLE MENDIOLA Oct 27, 2024 12:05
--- NOTE | 2024-10-31 13:42 | DVHSR ---
APPROVED REPORT Exam: Nuclear Stress Test Indication: Chest pain BMI: 0 Medical History Medical History: Atrial Fibrillation, Diabetes, HTN, SVT, Hyperlipidemia Allergies: Ibuprofen Stress Test Details Stress Test: Pharmacologic stress testing performed using 0.4 mg of regadenoson per 5 mL given IV ov er 10 seconds. HR Resting HR: 77 bpmMax Heart Rate (APMHR): 178.105333 bpm Max HR Achieved: 178 bpmTarget HR (85% APMHR): 151.055706 bpm % of APMHR: 100.00 Recovery HR: 94 bpm BP Resting BP: 130/91 mmHg Recovery BP: 131/91 mmHg ECG Resting ECG: Sinus Rhythm Clinical Reason for Termination: Completed protocol Exercise duration: 9 min sec Nurse Comments -Recieved ambulatory, A/Ox4 on RA, connected to residential monitor, VS stable. PIV S/L flushes well, rev iewed POC, pt verbalized understanding. Uriah CORPORATE CONSULTANT here to monitor exam. Treadmill test performed per protocol. Pt stable, tolerated well, VS returned to baseline. Pt to follow up with assistant office manager for results. Stress ECG Conclusion lvef 58% minor basal lateral wall fixed defect no major ischemia noted ecg shows baseline ST elevation concave appearance at rest NM EXAM: Myocardial Perfusion REST/STRESS Imaging Protocol: Rest Tc-99m/Stress Tc-99m 1 day Resting Data Rest SPECT myocardial perfusion imaging was performed in supine position 60 minutes following the int ravenous injection of 11.3 mCi of Tc-99m Sestamibi. Time of rest injection: 09:40 Date: 10/27/2024 Time of rest imagin:40 Date: 10/27/2024 Administration Route: IV Administration Site: Right AC Exercise Stress At peak stress, the patient was injected intravenously with 33.0mCi of Tc-99m Sestamibi. Time of stress injection: 10:50 Date: 10/27/2024 Time of stress imagin:10 Date: 10/27/2024 Administration Route: IV Administration Site: Right Arm Gated Stress SPECT was performed 20 minutes after stress injection. The images were gated to evaluate regional wall motion and calculate left ventricular ejection fracti on. Stress only was performed in the Supine position. Nuclear Conclusion Nuclear Findings: negative for ischemia lvef 58% minor basal lateral wall fixed defect no major ischemia noted ecg shows baseline ST elevation concave appearance at rest
== END 2024-10-27 17:00 | disposition home or self-care (01) ==
LOC: XYW 09:01
PROVIDERS: ATTEND Internal Medicine
DX: R07.9 Chest pain, unspecified (principal); I48.91 Unspecified atrial fibrillation; E11.9 Type 2 diabetes mellitus without complications; I10 Essential (primary) hypertension; E78.5 Hyperlipidemia, unspecified; Z88.6 Allergy status to analgesic agent
CPT/HCPCS: 78452; 93017; A9500; J2785